=== PATIENT | female | born 1940 | race Caucasian/White ===

== ENCOUNTER → 2017-10-20 07:42 | Outpatient (REF) | payer SELFPAY ==
[2017-10-20 09:10] LABS: Add Manual Diff / Slide Review NO; Basophils Percent Auto 0.7 % (0-2); Eosinophils Percent Auto 1.4 % (2-4); Hematocrit 25.2 % (36-46); Hemoglobin 8.8 g/dL (12.0-16.0); Lymphocytes Percent Auto 36.7 % (25-40); Mean Corpuscular HGB Conc 34.8 % (30-36); Mean Corpuscular Hemoglobin 32.6 PG (26-34); Mean Corpuscular Volume 93.9 fL (80-100); Monocytes Percent Auto 15.3 % (3-14); Neutrophils Absolute Auto 2400 /uL (3000-5900); Neutrophils Percent Auto 45.9 % (50-75); Platelet Count 204 X10^3/uL (150-400); Red Blood Cell Count 2.68 X10^6/uL (4.0-5.2); Red Cell Distribution Width 17.2 % (11.6-14.8); White Blood Cell Count 5.3 X10^3/uL (4.5-11.0)
[2017-10-20 09:35] LABS: BUN Creatinine Ratio 18.9 (6-22); Calcium 9.7 mg/dL (8.4-10.2); Estimated Glomerular Filt Rate > 60.0 mL/min (>60); Glucose 82 mg/dL (80-110); HEMOLYSIS 20 (0-50); Potassium 4.2 mmol/L (3.4-5.1); Sodium 137 mmol/L (137-145)
== END ==
LOC: LAB 07:42
PROVIDERS: Visit Provider Internal Medicine
DX: N32.2 Vesical fistula, not elsewhere classified (principal)
CPT/HCPCS: 36415; 80048; 85025

== ENCOUNTER 2018-12-02 12:23 | Emergency (ER) | payer MEDICARE, OTHER, SELFPAY ==
[2018-12-02 12:39] VITALS: BP 155/67; PULSE 88; RESP 20; TEMP 37.1; O2SAT 98
--- NOTE | 2018-12-02 12:43 | DI.RAD.S_ITS ---
PROCEDURE: XR CHEST 1V INDICATIONS: chest pain TECHNIQUE: One view of the chest was acquired. COMPARISON: None. FINDINGS: Surgical changes and devices: There is a Port-A-Cath on the left with the tip in the superior vena cava. Lungs and pleura: Lungs are clear. No pleural effusions or pneumothorax. Mediastinum: Mediastinal contours appear normal. Heart size is normal. Bones and chest wall: No suspicious bony lesions. Overlying soft tissues appear unremarkable. IMPRESSION: No acute cardiac pulmonary disease. Dictated by: Gilmar Briseno M.D. on 12/02/2018 at 12:58 Approved by: Gilmar Briseno M.D. on 12/02/2018 at 12:59
[2018-12-02 13:11] LABS: Add Manual Diff / Slide Review NO; Basophils Absolute Auto 0 /uL (0-100); Basophils Percent Auto 0.6 % (0-2); Eosinophils Absolute Auto 100 /uL (0-450); Eosinophils Percent Auto 1.1 % (2-4); Hematocrit 27.8 % (36-46); Hemoglobin 9.5 g/dL (12.0-16.0); Lymphocytes Absolute Auto 2000 /uL (1100-4500); Mean Corpuscular HGB Conc 34.1 % (30-36); Mean Corpuscular Hemoglobin 33.4 PG (26-34); Mean Corpuscular Volume 97.9 fL (80-100); Monocytes Absolute Auto 900 /uL (0-900); Neutrophils Absolute Auto 3700 /uL (1500-7000); Neutrophils Percent Auto 55.3 % (50-75); Platelet Count 213 X10^3/uL (150-400); Red Blood Cell Count 2.84 X10^6/uL (4.0-5.2); Red Cell Distribution Width 13.6 % (11.6-14.8); White Blood Cell Count 6.8 X10^3/uL (4.5-11.0)
[2018-12-02 13:17] LABS: Prothrombin Time 11.7 SECONDS (10.1-12.7)
--- NOTE | 2018-12-02 13:19 | DI.CT.S_ITS ---
PROCEDURE: CT HEAD/BRAIN WO CON INDICATIONS: passing out with cancer TECHNIQUE: Noncontrast 4.5 mm thick angled axial sections acquired from the foramen magnum to the vertex, with coronal and sagittal reformats. For radiation dose reduction, the following was used: automated exposure control, adjustment of mA and/or kV according to patient size. COMPARISON: , CT, HEAD WITHOUT CONTRAST, 10/20/2015, 10:44. FINDINGS: Image quality: Excellent. CSF spaces: Basal cisterns are patent. No extra-axial fluid collections. The ventricles are symmetric in size and shape. Brain: No intracranial bleeds or masses. There is metal artifact from what appears to be an aneurysm coiling procedure at the middle cerebral artery course at the anterior border of the left temporal fossa. There is cerebral volume loss for age, with resultant ventricular and sulcal prominence. There are periventricular and deep white matter chronic small vessel ischemic changes. There is intracranial internal carotid artery atherosclerosis. Skull and face: Calvarium and visualized facial bones appear intact, without suspicious lesions. Sinuses: Visualized sinuses and mastoids are clear. IMPRESSION: Anterior left cranial fossa aneurysm coiling has been performed, and in this area no hemorrhage or mass effect is seen. Relatively prominent metal artifact from the coiling procedure is present, distal and clear visualization of portions of the skull base. No acute disease. Dictated by: Shaheen Singh M.D. on 12/02/2018 at 14:21 Approved by: Shaheen Singh M.D. on 12/02/2018 at 14:23
--- NOTE | 2018-12-02 13:19 | DI.CT.S_ITS ---
PROCEDURE: CT ANGIO CHEST PE PROTOCOL INDICATIONS: short of breath passing out ovarain cancer TECHNIQUE: After the administration of intravenous contrast, 2 mm thick sections acquired from the pulmonary apices to the posterior costophrenic angles. 3-dimensional maximum intensity projection (MIP) coronal and sagittal reformats were then acquired through the thorax. For radiation dose reduction, the following was used: automated exposure control, adjustment of mA and/or kV according to patient size. COMPARISON: None. FINDINGS: Image quality: Excellent. Pulmonary arteries: Pulmonary arteries are normal in size, and demonstrate no intraluminal filling defects to suggest central pulmonary embolism. Lungs and pleura: Lungs are clear. No pleural effusions or pneumothorax. Central and peripheral airways are patent. Mediastinum: Heart size is normal, without pericardial effusion. No mediastinal or hilar adenopathy. Thoracic aorta is normal in caliber and enhancement. Esophagus is normal in caliber, without hiatal hernia. There is a left-sided Port-A-Cath central line identified with the tip positioned at the intracaval junction. Coronary and aortic atherosclerosis is present. Bones and chest wall: No suspicious bony lesions. Ribs and thoracic spine appear intact throughout. Moderate degenerative changes of the spine are present. Thyroid gland is not enlarged or adequately evaluated. No axillary or supraclavicular adenopathy. Abdomen: There is a fat containing upper abdominal ventral hernia which is not completely included on this exam. Otherwise, the imaged upper abdominal solid organs appear normal in the early arterial phase of enhancement. IMPRESSION: 1. No evidence of pulmonary emboli. 2. No acute cardiovascular process is suspected. 3. Coronary and aortic atherosclerosis. 4. Fat containing midline superior ventral hernia. Dictated by: Aj Patrick M.D. on 12/02/2018 at 13:28 Approved by: Aj Patrick M.D. on 12/02/2018 at 13:31
--- NOTE | 2018-12-02 13:19 | CM.MNRNOTE ---
pt c/o intermittent chest pain for the past month, pt states she has episodes of rapid heart beating, and dizziness and has to sit herself down. pt denies syncople episodes. pt having sob when she walks a distance. pt told to come to ED for blood clot. pt has no symptoms at this time. pt also reports having 2 aneurysms, she gets checked yearly. pt states she last had her port accessed a year ago to get cancer checked.
[2018-12-02 13:20] LABS: PTT Partial Thromboplastin Tim 34 SECONDS (26.4-36.2)
--- NOTE | 2018-12-02 13:23 | PC.NURSE ---
Power port verified via pt's information card provided.
[2018-12-02] MEDS: SODIUM CHLORIDE 0.9% 1,000 ML 1000 ML IV (13:25)
[2018-12-02 13:26] LABS: Alanine Aminotransferase 26 IU/L (9-52); Albumin 4.4 g/dL (3.5-5.0); Albumin Globulin Ratio 1.3 (1.0-2.8); Alkaline Phosphatase 58 U/L (38-126); Aspartate Aminotransferase 23 IU/L (14-36); BUN Creatinine Ratio 16.3 (6-22); Bilirubin Total 0.4 mg/dL (0.2-1.3); Blood Urea Nitrogen 26 mg/dL (7-17); Calcium 9.6 mg/dL (8.4-10.2); Carbon Dioxide 17 mmol/L (22-32); Chloride 114 mmol/L (98-107); Creatine Kinase 96 U/L (30-135); Estimated Glomerular Filt Rate 31.2 mL/min (>60); Globulin 3.5 g/dL (1.7-4.1); Glucose 112 mg/dL (80-110); HEMOLYSIS < 15 (0-50); Lipase 208 U/L (23-300); Potassium 4.5 mmol/L (3.4-5.1); Sodium 141 mmol/L (137-145); Total Protein 7.9 g/dL (6.3-8.2)
[2018-12-02 13:37] LABS: Troponin I < 0.012 ng/mL (0.01-0.034)
--- NOTE | 2018-12-02 14:24 | ED_ITS ---
HPI - Chest Pain General Chief Complaint: Chest Pain Stated Complaint: thinks she has a blood clot Time Seen by Provider: 12/02/18 12:50 Source: patient Mode of arrival: ambulatory Limitations: no limitations History of Present Illness HPI narrative: Patient is a julian 77-year-old female with history of ovarian cancer and brain aneurysms presenting with a variety of complaints including lightheadedness, chest pain and syncopal episodes versus lightheadedness does not sound like she is truly passed out or lost consciousness. She apparently has been having some shortness of breath off and on for number of months. She feels lightheaded at times she has never really passed out. She had outpatient blood work done with her PCP yesterday which showed an elevated D-dimer and unsure what the number is. She came in thinking that she has a clot. She really does not have any chest pain now. She has no significant shortness of breath she can't really tell me if it is with exertion or at rest. She denies any fever or productive cough. No radiation of pain. She has no numbness tingling or focal deficits. MD complaint: chest pain Related Data Home Medications Medication Instructions Recorded Confirmed azilsartan medoxomil [Edarbi] 80 mg PO DAILY 12/02/18 12/02/18 megestrol 40 mg PO BID 12/02/18 12/02/18 Allergies Allergy/AdvReac Type Severity Reaction Status Date / Time No Known Drug Allergies Allergy Verified 12/02/18 13:25 Review of Systems Review of Systems ROS Unobtainable: All systems reviewed & are unremarkable except as noted in HPI and below Constitutional Denies chills, Denies fever(s), Denies lethargy and Denies weakness Eyes Denies change in vision, Denies eye discharge, Denies irritation and Denies loss of vision ENT Ears, Nose, Mouth, and Throat: Denies change in voice, Denies neck pain and Denies sore throat Cardiovascular Reports as per HPI and Reports dyspnea Respiratory Reports as per HPI and Reports dyspnea Gastrointestinal Gastrointestinal: Denies abdominal pain, Denies change in bowel habits, Denies diarrhea, Denies nausea and Denies vomiting Genitourinary Denies hematuria, Denies flank pain, Denies urinary incontinence and Denies urinary urgency Musculoskeletal Denies neck pain Integumentary/Breasts Denies pruritus, Denies erythema, Denies rash and Denies wounds Neurologic Denies loss of vision and Denies weakness [facility] Medical History Brain aneurysm (Acute) Ovarian cancer (Acute) Exam Initial Vital Signs Initial Vital Signs: Vital Signs Temperature 98.8 F 12/02/18 12:39 Pulse Rate 88 12/02/18 12:39 Respiratory Rate 20 12/02/18 12:39 Blood Pressure 155/67 H 12/02/18 12:39 Pulse Oximetry 98 12/02/18 12:39 GENERAL: Alert well-appearing elderly female HEENT: Head atraumatic,EOMI, pupils reactive, face symmetric, moist mucous membranes CARDIOVASCULAR: Regular rate and rhythm without murmurs, rubs or gallops. RESPIRATORY: Breath sounds equal bilaterally, no wheezes rales or rhonchi. Port placement in left chest ABDOMEN: Soft, nontender. Normoactive bowel sounds all 4 quadrants. No guarding or rebound. EXTREMITIES: Normal range of motion, no clubbing or edema. Neurovascularly intact NEUROLOGICAL: Alert and oriented x4.Normal gait and speech. Cranial nerves II through XII grossly intact. Good [id number], good [id number], strength equal bilaterally, no dysarthria or aphasia, sensation in tact to soft touch bilaterally, no visual changes, no facial droop SKIN: Warm, dry, no laceration, no petechiae, no rashes or lesions. Scores NIH Stroke Scale Level of Conciousness: Alert, keenly responsive Ask month/age: Answers both questions correctly. Open/close eyes, close hand: Performs both tasks correctly Best gaze horizontal: Normal Visual ding: No visual loss Facial palsy: Normal symetrical movement Left arm drift: No drift for full 10 sec Right arm drift: No drift for full 10 sec Left leg drift: No drift for full 10 sec Right leg drift: No drift for full 10 sec Limb ataxia: Absent Sensory on face/arms/legs: Normal, no sensory loss Best language: No aphasia, normal Dysarthria: Normal Extinction or inattention: No abnormality Total NIH Stroke scale score: 0 Course Orders Ordered: ED Orders 12/02/18 12:43 XR chest 1V Stat EKG-12 Lead Stat 12/02/18 13:00 Complete Blood Count AUTO DIFF Stat Comprehensive Metabolic Panel Stat Lipase Stat Partial Thromboplastin Time Stat Prothrombin Time INR Stat Troponin & CK Cardiac Panel Stat 12/02/18 13:19 CT angio chest PE protocol Stat CT head/brain wo con Stat Discontinued Medications Sodium Chloride (Normal Saline 0.9%) 1,000 mls @ 1,000 mls/hr IV BOLUS ONE Stop: 12/02/18 14:11 Last Infusion: 12/02/18 15:21 Dose: 1,000 mls/hr Admin: 12/02/18 13:25 Dose: 1,000 mls/hr Vital Signs - 8 hr 12/02/18 12:39 12/02/18 14:43 Temperature 98.8 F Pulse Rate 88 84 Respiratory Rate 20 Blood Pressure 155/67 H Blood Pressure [Right Arm] 134/56 L Pulse Oximetry 98 100 MDM - Chest Pain Lab Data Attestation: I reviewed the patient's lab results. Result diagrams: 12/02/18 13:00 12/02/18 13:00 Lab Results 12/02/18 12/02/18 12/02/18 Range/Units 13:00 13:00 13:00 WBC 6.8 (4.5-11.0) X10^3/uL RBC 2.84 L (4.0-5.2) X10^6/uL Hgb 9.5 L (12.0-16.0) g/dL Hct 27.8 L (36-46) % MCV 97.9 (80-100) fL MCH 33.4 (26-34) PG MCHC 34.1 (30-36) % RDW 13.6 (11.6-14.8) % Plt Count 213 (150-400) X10^3/uL Neut % (Auto) 55.3 (50-75) % Lymph % (Auto) 30.0 (25-40) % [place] % (Auto) 13.0 (3-14) % Eos % (Auto) 1.1 L (2-4) % Baso % (Auto) 0.6 (0-2) % Neut # (Auto) 3700 (9706-9085) /uL Lymph # (Auto) 2000 (2980-6382) /uL [place] # (Auto) 900 (0-900) /uL Eos # (Auto) 100 (0-450) /uL Baso # (Auto) 0 (0-100) /uL PT 11.7 (10.1-12.7) SECONDS INR 1.0 (0.9-1.3) APTT 34 (26.4-36.2) SECONDS Sodium 141 (137-145) mmol/L Potassium 4.5 (3.4-5.1) mmol/L Chloride 114 H (98-107) mmol/L Carbon Dioxide 17 L (22-32) mmol/L BUN 26 H (7-17) mg/dL Creatinine 1.60 H (0.52-1.04) mg/dL Estimated GFR 31.2 L (>60) mL/min BUN/Creatinine Ratio 16.3 (6-22) Glucose 112 H (80-110) mg/dL Calcium 9.6 (8.4-10.2) mg/dL Total Bilirubin 0.4 (0.2-1.3) mg/dL AST 23 (14-36) IU/L ALT 26 (9-52) IU/L Alkaline Phosphatase 58 (38-126) U/L Total Creatine Kinase 96 (30-135) U/L CK-MB (CK-2) TNP CK-MB (CK-2) Rel Index TNP Troponin I < 0.012 (0.01-0.034) ng/mL Total Protein 7.9 (6.3-8.2) g/dL Albumin 4.4 (3.5-5.0) g/dL Globulin 3.5 (1.7-4.1) g/dL Albumin/Globulin Ratio 1.3 (1.0-2.8) Lipase 208 (23-300) U/L Urine Dip Bedside Urine Glucose Negative Bedside Urine Bilirubin - Negative Bedside Urine Ketone - Negative Urine Specific [place] 1.015 Bedside Urine Occult Blood - Negative Bedside Urine pH 5.5 Bedside Urine Protein - Negative Bedside Urine Urobilinogen - Negative Bedside Urine Nitrite - Negative Bedside Urine Leukocytes - Negative Esterase Imaging Data Chest x-ray: Radiologist's impression: PROCEDURE: XR CHEST 1V INDICATIONS: chest pain TECHNIQUE: One view of the chest was acquired. COMPARISON: None. FINDINGS: Surgical changes and devices: There is a Port-A-Cath on the left with the tip in the superior vena cava. Lungs and pleura: Lungs are clear. No pleural effusions or pneumothorax. Mediastinum: Mediastinal contours appear normal. Heart size is normal. Bones and chest wall: No suspicious bony lesions. Overlying soft tissues appear unremarkable. IMPRESSION: No acute cardiac pulmonary disease. Dictated by: Gilmar Briseno M.D. on 12/02/2018 at 12:58 CT scan - chest: Radiologist's impression: PROCEDURE: CT ANGIO CHEST PE PROTOCOL INDICATIONS: short of breath passing out ovarain cancer TECHNIQUE: After the administration of intravenous contrast, 2 mm thick sections acquired from the pulmonary apices to the posterior costophrenic angles. 3-dimensional maximum intensity projection (MIP) coronal and sagittal reformats were then acquired through the thorax. For radiation dose reduction, the following was used: automated exposure cont rol, adjustment of mA and/or kV according to patient size. COMPARISON: None. FINDINGS: Image quality: Excellent. Pulmonary arteries: Pulmonary arteries are normal in size, and demonstrate no intraluminal filling defects to suggest central pulmonary embolism. Lungs and pleura: Lungs are clear. No pleural effusions or pneumothorax. Central and peripheral airways are patent. Mediastinum: Heart size is normal, without pericardial effusion. No mediastinal or hilar adenopathy. Thoracic aorta is normal in caliber and enhancement. Esophagus is normal in caliber, without hiatal hernia. There is a left-sided Port-A-Cath central line identified with the tip positioned at the intracaval junction. Coronary and aortic atherosclerosis is present. Bones and chest wall: No suspicious bony lesions. Ribs and thoracic spine appear intact throughout. Moderate degenerative changes of the spine are present. Thyroid gland is not enlarged or adequately evaluated. No axillary or supraclavicular adenopathy. Abdomen: There is a fat containing upper abdominal ventral hernia which is not completely included on this exam. Otherwise, the imaged upper abdominal solid organs appear normal in the early arterial phase of enhancement. IMPRESSION: 1. No evidence of pulmonary emboli. 2. No acute cardiovascular process is suspected. 3. Coronary and aortic atherosclerosis. 4. Fat containing midline superior ventral hernia. Dictated by: Aj Patrick M.D. on 12/02/2018 at 13:28 CT scan - head: Radiologist's impression: PROCEDURE: CT HEAD/BRAIN WO CON INDICATIONS: passing out with cancer TECHNIQUE: Noncontrast 4.5 mm thick angled axial sections acquired from the foramen magnum to the vertex, with coronal and sagittal reformats. For radiation dose reduction, the following was used: automated exposure control, adjustment of mA and/or kV according to patient size. COMPARISON: [facility], CT, HEAD WITHOUT CONTRAST, 10/20/2015, 10:44. FINDINGS: Image quality: Excellent. CSF spaces: Basal cisterns are patent. No extra-axial fluid collections. The ventricles are symmetric in size and shape. Brain: No intracranial bleeds or masses. There is metal artifact from what appears to be an aneurysm coiling procedure at the middle cerebral artery course at the anterior border of the left temporal fossa. There is cerebral volume loss for age, with resultant ventricular and sulcal prominence. There are periventricular and deep white matter chronic small vessel ischemic changes. There is intracranial internal carotid artery atherosclerosis. Skull and face: Calvarium and visualized facial bones appear intact, without suspicious lesions. Sinuses: Visualized sinuses and mastoids are clear. IMPRESSION: Anterior left cranial fossa aneurysm coiling has been performed, and in this area no hemorrhage or mass effect is seen. Relatively prominent metal artifact from the coiling procedure is present, distal and clear visualization of portions of the skull base. No acute disease. Dictated by: Shaheen Singh M.D. on 12/02/2018 at 14:21 ECG Data Attestation: I personally reviewed and interpreted this ECG as follows: Prior ECG tracings: available for review Interpretation: Sinus rhythm rate 90 Q-wave noted in lead [address] elevations artifact noted mild ST chin in lead [address] elevations similar previous EKG MDM Narrative Medical decision making narrative: No real cause of patient's symptoms are identified. No pulmonary embolism identified head CT seems stable at this time. She is not requiring oxygen no sign of infection. EKG troponin also reassuring. At this time patient feels ready and able to go home. Discharge Plan Departure Patient Disposition: Home Clinical Impression: Atypical chest pain Discharge Date/Time: 12/02/18 15:23 Interventions: ED Discharge Assessment Last Done: 12/02/18 15:23 Instructions: DI for Atypical Chest Pain Activity Restrictions/Additional Instructions: *You have been diagnosed with atypical chest pain *What to do: At this time CT scan of head and chest are reassuring. No sign of blood clot. Blood work also reassuring. *Continue to take medications as directed *Follow up with your primary care provider in 2-3 days *Return to ER if you should have any new or worsening shortness of breath or chest or any new, worsening or concerning symptoms Prescriptions: No Action megestrol 40 mg tablet 40 mg PO BID RF: 0 Edarbi 80 mg tablet 80 mg PO DAILY RF: 0 Referrals: Zacarias Mcfarland MD [Non-Staff] -
[2018-12-02 14:43] VITALS: BP 134/56; PULSE 84; O2SAT 100
== END 2018-12-02 15:23 | disposition home or self-care (01) ==
PROVIDERS: Emergency Provider Emergency Medicine
DX: R07.89 Other chest pain (principal); R55 Syncope and collapse; R06.02 Shortness of breath; C56.9 Malignant neoplasm of unspecified ovary; Z87.898 Personal history of other specified conditions
CPT/HCPCS: 36591; 70450; 71045; 71275; 80053; 81003; 82550; 83690; 84484; 85025; 85610; 85730; 93005; 96360; 96361; 99283; 99285; Q9967

== ENCOUNTER 2020-09-16 10:59 | Emergency (ER) | payer MEDICARE, OTHER, SELFPAY ==
[2020-09-16] VITALS (26 sets, daily range): BP systolic 114–151; BP diastolic 56–76; PULSE 74–113; RESP 12–24; TEMP 35.6–37.3; O2SAT 95–100
--- NOTE | 2020-09-16 11:15 | ED.GIBLEED ---
HPI - GI Bleed General Chief complaint: GI Bleed Stated complaint: Black stool, vomiting black Time Seen by Provider: 09/16/20 11:15 Source: patient, family and old records reviewed Mode of arrival: Family Vehicle Limitations: no limitations History of Present Illness HPI Narrative: This is a pleasant 79-year-old female comes emergency department with a near syncopal episode this, 4 episodes of black emesis as well as black stool in her colostomy bag. Patient states she has noted melena in her colostomy intermittently over time but most recently over the last several days. She denies headache. She denies fevers or chills. She denies diaphoresis. She denies any chest pain or shortness of breath. She denies any back or abdominal pain. She does currently feel nauseated. She denies any new urinary symptoms. Her notes that she became more pale in the last 24 hours. Patient does not appreciated as much. She is on Brilinta daily as well as aspirin 81 mg. She has a cardiac history with cardiac stents, she takes medication for hypertension, dyslipidemia, torsemide as well as her medication [facility]in[facility] for her ovarian cancer. Patient states she was treated in the past with radiation and medication for her ovarian cancer. She did develop recurrence and is now currently only on medication with no radiation this episode. Her oncologist is [facility]. Patient states she does not any prior surgeries besides her resection and colostomy and cardiac stents. She denies any allergies to medications. She does not have any known history of GI bleeds. Her cardiology team is based out of [place]. Her primary care physician is on [facility]. Related Data Home Medications Medication Instructions Recorded Confirmed azilsartan medoxomil [Edarbi] 80 mg PO DAILY 12/02/18 12/02/18 megestrol 40 mg PO BID 12/02/18 12/02/18 Coreg 09/16/20 Crestor 09/16/20 Demadex 09/16/20 Megace 09/16/20 Nitrostat 09/16/20 aspirin 09/16/20 ergocalciferol (vitamin D2) 09/16/20 Allergies Allergy/AdvReac Type Severity Reaction Status Date / Time No Known Drug Allergies Allergy Verified 09/16/20 11:13 Review of Systems Review of Systems ROS Unobtainable: All systems reviewed & are unremarkable except as noted in HPI and below Patient History Medical History (Updated 09/16/20 @ 15:36 by Nicolette Blackburn DO) Brain aneurysm Ovarian cancer alcohol intake frequency: 0-2 drinks per day Substance Use Type: does not use Exam Narrative Exam Narrative: GEN: well nourished, pale female, alert and oriented x 3, patient appears to be in mild distress. No diaphoresis. HEENT: Atraumatic, pupils are equal round reactive to light, extraocular movements are intact, there is conjunctival pallor. Throat is clear without any exudates, erythema, tonsillar enlargement or uvular deviation HEART: Regular rate and rhythm without murmur, clicks, rubs. LUNGS:Lungs clear to auscultation, no wheezes, rales, crackles, chest moves symmetrically, no tachypnea accessory muscle use. ABD:bowel sounds normal, soft, non-tender, no guarding, rebound, rigidity, no masses noted, no hepatosplenomegaly. Patient has melanotic stool which is Hemoccult positive from her colostomy. No bright red blood is noted. :No CVA tenderness MSCL: Non-tender, no muscle atrophy, normal range of motion. NEURO:CN 2-12 intact, sensation normal SKIN: Positive for pallor, no petechiae, ecchymosis or other skin changes noted. 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) Stat 09/16/20 11:35 Complete Blood Count AUTO DIFF Stat Comprehensive Metabolic Panel Stat Lactate (Lactic Acid) Stat Lipase Stat Packed Cells Stat Partial Thromboplastin Time Stat Prothrombin Time INR Stat Troponin I Stat Type and Screen Stat 09/16/20 12:06 Blood Culture Stat 09/16/20 12:45 Urine Culture Stat Urine Microscopic Stat Discontinued Medications Sodium Chloride (Normal Saline 0.9%) 1,000 mls @ 1,000 mls/hr IV BOLUS ONE Stop: 09/16/20 12:14 Last Infusion: 09/16/20 13:57 Dose: 0 mls/hr Documented by: Admin: 09/16/20 11:50 Dose: 1,000 mls/hr Documented by: NHAN Pantoprazole Sodium 80 mg/ (Sodium Chloride) 100 mls @ 10 mls/hr IV CONT SOHAIL Last Infusion: 09/16/20 16:54 Dose: 8 mg/hr, 10 mls/hr Documented by: Admin: 09/16/20 11:50 Dose: 8 mg/hr, 10 mls/hr Documented by: NHAN Ondansetron HCl (Ondansetron 4 Mg/2 Ml Inj) 4 mg IV NOW ONE Stop: 09/16/20 11:16 Last Admin: 09/16/20 11:50 Dose: 4 mg Documented by: NHAN Pantoprazole Sodium (Pantoprazole 40 Mg Vial) 80 mg IV NOW ONE Stop: 09/16/20 11:17 Last Admin: 09/16/20 11:50 Dose: 80 mg Documented by: NHAN Consultations Consultation #1: Spoke with GI from [facility]. They will see patient after transfer. Consultation #2: Dr. Santos accepts for transfer as the hospitalist at [facility]. Patient has been stable here in the department. She did receive 2 units plan she is on Protonix. Reviewed patient's history, findings labs today. Vital Signs Vital signs: Vital Signs - 8 hr 09/16/20 11:31 09/16/20 11:33 09/16/20 12:00 Temperature Pulse Rate 87 89 90 Respiratory Rate 19 19 19 Blood Pressure 129/62 135/60 Pulse Oximetry 99 99 99 09/16/20 12:36 09/16/20 12:47 09/16/20 13:00 Temperature Pulse Rate 83 83 84 Respiratory Rate 18 16 17 Blood Pressure 116/76 116/76 Pulse Oximetry 98 99 99 09/16/20 13:30 09/16/20 14:00 09/16/20 14:01 Temperature 98.8 F Pulse Rate 75 77 76 Respiratory Rate 14 15 18 Blood Pressure 116/76 Pulse Oximetry 100 99 09/16/20 14:05 09/16/20 14:15 09/16/20 14:17 Temperature 97.6 F Pulse Rate 77 78 79 Respiratory Rate 16 19 16 Blood Pressure 122/63 124/62 124/62 Pulse Oximetry 99 97 09/16/20 14:30 09/16/20 14:45 09/16/20 15:00 Temperature Pulse Rate 76 76 75 Respiratory Rate 17 21 15 Blood Pressure 119/59 L 130/65 125/60 Pulse Oximetry 99 100 100 09/16/20 15:15 09/16/20 15:30 09/16/20 15:31 Temperature 98.4 F 98.4 F Pulse Rate 75 77 75 Respiratory Rate 16 17 16 Blood Pressure 124/58 L 114/59 L 114/59 L Pulse Oximetry 100 100 09/16/20 15:45 09/16/20 15:46 09/16/20 15:47 Temperature 98.5 F 99.2 F Pulse Rate 88 81 81 Respiratory Rate 21 16 18 Blood Pressure 136/60 136/60 131/60 Pulse Oximetry 99 09/16/20 16:00 09/16/20 16:16 09/16/20 16:30 Temperature Pulse Rate 77 76 77 Respiratory Rate 24 19 17 Blood Pressure 128/60 151/56 H 125/74 Pulse Oximetry 100 95 100 09/16/20 16:46 Temperature Pulse Rate 80 Respiratory Rate 16 Blood Pressure 131/60 Pulse Oximetry 100 MDM - GI Bleed Lab Data Attestation: I reviewed the patient's lab results. Result diagrams: 09/16/20 11:35 09/16/20 11:35 Labs: Lab Results 09/16/20 09/16/20 09/16/20 Range/Units 11:30 11:35 11:35 WBC 7.8 (4.5-11.0) X10^3/uL RBC 2.07 L (4.0-5.2) X10^6/uL Hgb 6.8 L* (12.0-16.0) g/dL Hct 20.6 L* (36-46) % MCV 99.2 (80-100) fL MCH 33.0 (26-34) PG MCHC 33.3 (30-36) % RDW 15.2 H (11.6-14.8) % Plt Count 166 (150-400) X10^3/uL Neut % (Auto) 67.9 (50-75) % Lymph % (Auto) 24.8 L (25-40) % [place] % (Auto) 6.5 (3-14) % Eos % (Auto) 0.4 L (2-4) % Baso % (Auto) 0.4 (0-2) % Neut # (Auto) 5300 (2527-0653) /uL Lymph # (Auto) 1900 (8750-0767) /uL [place] # (Auto) 500 (0-900) /uL Eos # (Auto) 0 (0-450) /uL Baso # (Auto) 0 (0-100) /uL PT 12.7 (10.1-12.7) SECONDS INR 1.1 (0.9-1.3) APTT 24 L D (26.4-36.2) SECONDS Sodium (137-145) mmol/L Potassium (3.4-5.1) mmol/L Chloride (98-107) mmol/L Carbon Dioxide (22-32) mmol/L BUN (7-17) mg/dL Creatinine (0.52-1.04) mg/dL Estimated GFR (>60) mL/min BUN/Creatinine Ratio (6-22) Glucose (80-110) mg/dL Lactate (0.7-2.1) mmol/L Calcium (8.4-10.2) mg/dL Total Bilirubin (0.2-1.3) mg/dL AST (14-36) IU/L ALT (<35) IU/L Alkaline Phosphatase (38-126) U/L Troponin I (0.01-0.034) ng/mL Total Protein (6.3-8.2) g/dL Albumin (3.5-5.0) g/dL Globulin (1.7-4.1) g/dL Albumin/Globulin Ratio (1.0-2.8) Lipase (23-300) U/L Urine RBC (0-5/HPF) Urine WBC (0-5/HPF) Ur Squamous Epith Cells (0-5/HPF) Urine Bacteria (None) Ur Culture Indicated? SARS-CoV-2 (PCR) Negative (Negative) Blood Type Antibody Screen Crossmatch 0409/16/20 09/16/20 Range/Units 11:35 11:35 11:35 WBC (4.5-11.0) X10^3/uL RBC (4.0-5.2) X10^6/uL Hgb (12.0-16.0) g/dL Hct (36-46) % MCV (80-100) fL MCH (26-34) PG MCHC (30-36) % RDW (11.6-14.8) % Plt Count (150-400) X10^3/uL Neut % (Auto) (50-75) % Lymph % (Auto) (25-40) % [place] % (Auto) (3-14) % Eos % (Auto) (2-4) % Baso % (Auto) (0-2) % Neut # (Auto) (9770-8148) /uL Lymph # (Auto) (3811-4877) /uL [place] # (Auto) (0-900) /uL Eos # (Auto) (0-450) /uL Baso # (Auto) (0-100) /uL PT (10.1-12.7) SECONDS INR (0.9-1.3) APTT (26.4-36.2) SECONDS Sodium 137 (137-145) mmol/L Potassium 3.5 (3.4-5.1) mmol/L Chloride 104 (98-107) mmol/L Carbon Dioxide 20 L (22-32) mmol/L BUN 69 H (7-17) mg/dL Creatinine 1.34 H (0.52-1.04) mg/dL Estimated GFR 38.1 L (>60) mL/min BUN/Creatinine Ratio 51.5 H (6-22) Glucose 174 H (80-110) mg/dL Lactate 4.2 H* (0.7-2.1) mmol/L Calcium 9.1 (8.4-10.2) mg/dL Total Bilirubin 0.4 (0.2-1.3) mg/dL AST 33 (14-36) IU/L ALT 22 (<35) IU/L Alkaline Phosphatase 52 (38-126) U/L Troponin I < 0.012 (0.01-0.034) ng/mL Total Protein 6.6 (6.3-8.2) g/dL Albumin 3.7 (3.5-5.0) g/dL Globulin 2.9 (1.7-4.1) g/dL Albumin/Globulin Ratio 1.3 (1.0-2.8) Lipase 159 (23-300) U/L Urine RBC (0-5/HPF) Urine WBC (0-5/HPF) Ur Squamous Epith Cells (0-5/HPF) Urine Bacteria (None) Ur Culture Indicated? SARS-CoV-2 (PCR) (Negative) Blood Type A Positive Antibody Screen Negative Crossmatch See Detail 09/16/20 09/16/20 Range/Units 12:45 14:15 WBC (4.5-11.0) X10^3/uL RBC (4.0-5.2) X10^6/uL Hgb (12.0-16.0) g/dL Hct (36-46) % MCV (80-100) fL MCH (26-34) PG MCHC (30-36) % RDW (11.6-14.8) % Plt Count (150-400) X10^3/uL Neut % (Auto) (50-75) % Lymph % (Auto) (25-40) % [place] % (Auto) (3-14) % Eos % (Auto) (2-4) % Baso % (Auto) (0-2) % Neut # (Auto) (0345-1155) /uL Lymph # (Auto) (1858-5505) /uL [place] # (Auto) (0-900) /uL Eos # (Auto) (0-450) /uL Baso # (Auto) (0-100) /uL PT (10.1-12.7) SECONDS INR (0.9-1.3) APTT (26.4-36.2) SECONDS Sodium (137-145) mmol/L Potassium (3.4-5.1) mmol/L Chloride (98-107) mmol/L Carbon Dioxide (22-32) mmol/L BUN (7-17) mg/dL Creatinine (0.52-1.04) mg/dL Estimated GFR (>60) mL/min BUN/Creatinine Ratio (6-22) Glucose (80-110) mg/dL Lactate 1.3 (0.7-2.1) mmol/L Calcium (8.4-10.2) mg/dL Total Bilirubin (0.2-1.3) mg/dL AST (14-36) IU/L ALT (<35) IU/L Alkaline Phosphatase (38-126) U/L Troponin I (0.01-0.034) ng/mL Total Protein (6.3-8.2) g/dL Albumin (3.5-5.0) g/dL Globulin (1.7-4.1) g/dL Albumin/Globulin Ratio (1.0-2.8) Lipase (23-300) U/L Urine RBC None seen (0-5/HPF) Urine WBC 5-10/hpf H (0-5/HPF) Ur Squamous Epith Cells 0-1 /hpf (0-5/HPF) Urine Bacteria None seen (None) Ur Culture Indicated? Specimen cultured SARS-CoV-2 (PCR) (Negative) Blood Type Antibody Screen Crossmatch Point of Care Testing Stool Occult Blood Positive Urine Dip Bedside Urine Glucose Negative Bedside Urine Bilirubin - Negative Bedside Urine Ketone - Negative Urine Specific [place] 1.015 Bedside Urine Occult Blood - Negative Bedside Urine pH 6.0 Bedside Urine Protein +/- 15 Bedside Urine Urobilinogen - Negative Bedside Urine Nitrite - Negative Bedside Urine Leukocytes + [address] scan - abdomen/pelvis: Radiologist's Impression: [address] [id number] Scan ReportSigned Patient: Svetlana AbarcaMR#: [id number]: [id number]:[id number]/Sex: 79 / FDate of Service: 09/16/20Loc: EDAccession Number: [id number] Procedure: CT abdomen pelvis w con Ordering Provider: Nicolette Blackburn D.O. PROCEDURE: CT ABDOMEN PELVIS W CON INDICATIONS: black emesis/stool, gi bleed, + ovarian cancer, colostomy TECHNIQUE: After the administration of intravenous contrast, 5 mm thick sections acquired from the diaphragm to the symphysis. 5 mm coronal and sagittal reformats were acquired. For radiation dose reduction, the following was used: automated exposure control, adjustment of mA and/or kV according to patient size. COMPARISON: [facility], CT, CT ANGIO CHEST PE PROTOCOL, 12/02/2018, 13:58. FINDINGS: Image quality: Excellent. ABDOMEN: Lung bases: Mild basilar atelectasis. Heart size is normal. No pericardial effusions. Multi-vessel coronary vascular calcification. Solid organs: Liver is normal in size and enhancement. Gallbladder demonstrates radiopaque gallstones. Biliary system is non dilated. Pancreas enhances normally. Spleen is normal in size and enhancement. No adrenal nodules. Kidneys demonstrate normal size and enhancement, without hydronephrosis. There is circumferential wall thickening along the distal left pelvis/proximal ureter. Peritoneum and bowel: Patient is status post left hemicolectomy with diverting ostomy within the left abdomen. There are diverticula noted within the ostomy with a peristomal hernia containing fat, partially calcified soft tissue deposits. There is mild adjacent inflammation. The stomach and proximal small bowel are nonobstructed. There is a large ventral hernia encompassing the majority of the anterior abdominal wall including fat and loops of small and large bowel. There is mild wall thickening of the right colon with mild adjacent inflammation. Multiple mesenteric masses most of which are partially calcified. Within the left lateral pararenal space there is a 3.2 by 2.1 by 2.4 centimeter mass. Adjacent smaller masses identified. Multiple mesenteric and portal caval lymph nodes are also identified most which are partially calcified. Within the pelvis just posterior to the bladder is a multilobulated soft tissue mass with heterogeneous calcifications measuring 4.9 x 5.2 x 5.9 centimeters. Nodes and vessels: Multiple lymph nodes as described above most of which are partially calcified. Mild dilation of the infrarenal abdominal aorta measuring up to 2.5 centimeters. Miscellaneous: Ventral hernia as above. PELVIS: Genitourinary: Status post hysterectomy and oophorectomy. Findings as above. Miscellaneous: Soft tissue deposits noted along the anterior abdominal wall some of which are partially calcified and subcentimeter in short axis diameter. Bones: No suspicious bony lesions. Posterior fusion of L4-L5 without evidence of hardware complication. No acute osseous abnormality or aggressive appearing osseous lesion. No vertebral body compression fractures. IMPRESSION: Multiple mesenteric and soft tissue deposits most of which are partially calcified most consistent with metastatic disease likely ovarian given history. Patient is status post left hemicolectomy with diverting ostomy. Within the ostomy there is a peristomal hernia including fat and bowel. Adjacent to this are multiple diverticula and small amount of inflammation which may suggest diverticulitis versus cycle of ostomy complication. In addition there are likely metastatic deposits. Mild wall thickening of the right colon which may be seen in the setting of colitis. Focal dilation of the infrarenal abdominal aorta measuring up to 2.5 centimeters. Findings discussed with the ordering provider Dr. Nicolette bill combine Dr. Shelton Pretty at approximately 1200 hours [place] Standard time on 09/16/2020. Dictated by: on 09/16/2020 at 11:53 Approved by: on 09/16/2020 at 12:19 ECG Data Attestation: I personally reviewed and interpreted this ECG as follows: Interpretation: Rhythm with premature supraventricular complexes. Left axis deviation. Low voltage QRS. No acute ST changes. MDM Narrative Medical decision making narrative: This is a year old female comes emergency department with complaint of near syncope with likely GI bleed with melena and positive stool occult on her colostomy and reported hematemesis of blackish emesis. Patient's hemoglobin has dropped from her prior a year ago it is 6.8 today. Patient was transfused 2 units. Protonix 80 mg and drip was started. Patient has been hemodynamically stable except for some tachycardia initially which has improved after transfusion. Her initial lactate was 4.2 but improved to a normal range. Troponin was negative. BUN is elevated consistent with GI bleed. She is a daily anticoagulant. She has known ovarian cancer and follows with oncology at [facility]. Her CT does not have any abdominal imaging for comparison but she has multiple calcific changes likely secondary to her ovarian cancer with some possible colitis but this would not explain her black emesis. She does not have any obstructive changes. Patient transferred as they have multiple subspecialties available that we do not have. I did speak with gastroenterology as well as the hospitalist. Discharge Plan Departure Patient Disposition: [facility] Clinical Impression: Acute GI bleeding, Ovarian cancer Prescriptions: No Action aspirin 81 mg Tablet,Chewable RF: 0 Coreg 12.5 mg RF: 0 Megace 40 mg RF: 0 Crestor 40 mg RF: 0 Nitrostat 0.4 mg RF: 0 ergocalciferol (vitamin D2) 2,000 Units RF: 0 Demadex 10 mg RF: 0 megestrol 40 mg tablet 40 mg PO BID RF: 0 Edarbi 80 mg tablet 80 mg PO DAILY RF: 0 Referrals: Elena Huerta MD [Primary Care Provider] -
--- NOTE | 2020-09-16 11:26 | DI.CT.S_ITS ---
PROCEDURE: CT ABDOMEN PELVIS W CON INDICATIONS: black emesis/stool, gi bleed, + ovarian cancer, colostomy TECHNIQUE: After the administration of intravenous contrast, 5 mm thick sections acquired from the diaphragm to the symphysis. 5 mm coronal and sagittal reformats were acquired. For radiation dose reduction, the following was used: automated exposure control, adjustment of mA and/or kV according to patient size. COMPARISON: [facility], CT, CT ANGIO CHEST PE PROTOCOL, 12/02/2018, 13:58. FINDINGS: Image quality: Excellent. ABDOMEN: Lung bases: Mild basilar atelectasis. Heart size is normal. No pericardial effusions. Multi-vessel coronary vascular calcification. Solid organs: Liver is normal in size and enhancement. Gallbladder demonstrates radiopaque gallstones. Biliary system is non dilated. Pancreas enhances normally. Spleen is normal in size and enhancement. No adrenal nodules. Kidneys demonstrate normal size and enhancement, without hydronephrosis. There is circumferential wall thickening along the distal left pelvis/proximal ureter. Peritoneum and bowel: Patient is status post left hemicolectomy with diverting ostomy within the left abdomen. There are diverticula noted within the ostomy with a peristomal hernia containing fat, partially calcified soft tissue deposits. There is mild adjacent inflammation. The stomach and proximal small bowel are nonobstructed. There is a large ventral hernia encompassing the majority of the anterior abdominal wall including fat and loops of small and large bowel. There is mild wall thickening of the right colon with mild adjacent inflammation. Multiple mesenteric masses most of which are partially calcified. Within the left lateral pararenal space there is a 3.2 by 2.1 by 2.4 centimeter mass. Adjacent smaller masses identified. Multiple mesenteric and portal caval lymph nodes are also identified most which are partially calcified. Within the pelvis just posterior to the bladder is a multilobulated soft tissue mass with heterogeneous calcifications measuring 4.9 x 5.2 x 5.9 centimeters. Nodes and vessels: Multiple lymph nodes as described above most of which are partially calcified. Mild dilation of the infrarenal abdominal aorta measuring up to 2.5 centimeters. Miscellaneous: Ventral hernia as above. PELVIS: Genitourinary: Status post hysterectomy and oophorectomy. Findings as above. Miscellaneous: Soft tissue deposits noted along the anterior abdominal wall some of which are partially calcified and subcentimeter in short axis diameter. Bones: No suspicious bony lesions. Posterior fusion of L4-L5 without evidence of hardware complication. No acute osseous abnormality or aggressive appearing osseous lesion. No vertebral body compression fractures. IMPRESSION: Multiple mesenteric and soft tissue deposits most of which are partially calcified most consistent with metastatic disease likely ovarian given history. Patient is status post left hemicolectomy with diverting ostomy. Within the ostomy there is a peristomal hernia including fat and bowel. Adjacent to this are multiple diverticula and small amount of inflammation which may suggest diverticulitis versus cycle of ostomy complication. In addition there are likely metastatic deposits. Mild wall thickening of the right colon which may be seen in the setting of colitis. Focal dilation of the infrarenal abdominal aorta measuring up to 2.5 centimeters. Findings discussed with the ordering provider Dr. Nicolette bill combine Dr. Shelton Pretty at approximately 1200 hours [place] Standard time on 09/16/2020. Dictated by: on 09/16/2020 at 11:53 Approved by: on 09/16/2020 at 12:19
--- NOTE | 2020-09-16 11:44 | PC.NURSE ---
Ostomy bag emptied and guiac postive, black liquid.
[2020-09-16 11:48] LABS: Add Manual Diff / Slide Review NO; Basophils Absolute Auto 0 /uL (0-100); Basophils Percent Auto 0.4 % (0-2); Eosinophils Absolute Auto 0 /uL (0-450); Eosinophils Percent Auto 0.4 % (2-4); Lymphocytes Absolute Auto 1900 /uL (1100-4500); Lymphocytes Percent Auto 24.8 % (25-40); Mean Corpuscular HGB Conc 33.3 % (30-36); Mean Corpuscular Volume 99.2 fL (80-100); Monocytes Absolute Auto 500 /uL (0-900); Monocytes Percent Auto 6.5 % (3-14); Neutrophils Absolute Auto 5300 /uL (1500-7000); Neutrophils Percent Auto 67.9 % (50-75); Platelet Count 166 X10^3/uL (150-400); Red Blood Cell Count 2.07 X10^6/uL (4.0-5.2); Red Cell Distribution Width 15.2 % (11.6-14.8); White Blood Cell Count 7.8 X10^3/uL (4.5-11.0)
[2020-09-16] MEDS: PANTOPRAZOLE 80 MG in SODIUM CHLORIDE 0.9% 100 ML 10 ML IV (11:50)
[2020-09-16] MEDS: ONDANSETRON 4 MG/2 ML INJ IV (11:50)
[2020-09-16] MEDS: SODIUM CHLORIDE 0.9% 1,000 ML 1000 ML IV (11:50)
[2020-09-16] MEDS: PANTOPRAZOLE 40 MG VIAL 80 MG IV (11:50)
[2020-09-16 11:56] LABS: Hematocrit 20.6 % (36-46)
[2020-09-16 11:57] LABS: Hemoglobin 6.8 g/dL (12.0-16.0)
[2020-09-16 12:06] LABS: Alanine Aminotransferase 22 IU/L (<35); Albumin 3.7 g/dL (3.5-5.0); Albumin Globulin Ratio 1.3 (1.0-2.8); Alkaline Phosphatase 52 U/L (38-126); Aspartate Aminotransferase 33 IU/L (14-36); BUN Creatinine Ratio 51.5 (6-22); Bilirubin Total 0.4 mg/dL (0.2-1.3); Blood Urea Nitrogen 69 mg/dL (7-17); Calcium 9.1 mg/dL (8.4-10.2); Carbon Dioxide 20 mmol/L (22-32); Chloride 104 mmol/L (98-107); Estimated Glomerular Filt Rate 38.1 mL/min (>60); Globulin 2.9 g/dL (1.7-4.1); Glucose 174 mg/dL (80-110); HEMOLYSIS < 15 (0-50); Lipase 159 U/L (23-300); Potassium 3.5 mmol/L (3.4-5.1); Sodium 137 mmol/L (137-145); Total Protein 6.6 g/dL (6.3-8.2)
[2020-09-16 12:11] LABS: Lactate (Lactic Acid) 4.2 mmol/L (0.7-2.1)
[2020-09-16 12:18] LABS: Troponin I < 0.012 ng/mL (0.01-0.034)
[2020-09-16 12:26] LABS: INR 1.1 (0.9-1.3); Prothrombin Time 12.7 SECONDS (10.1-12.7)
[2020-09-16 12:29] LABS: PTT Partial Thromboplastin Tim 24 SECONDS (26.4-36.2)
[2020-09-16 13:29] LABS: Bacteria Urine None Seen; RBC Urine None Seen (0-5/HPF)
[2020-09-16 13:38] LABS: Culture Indicated Urine Specimen Cultured; Squamous Epithelial Cell Urine 0-1 /HPF (0-5/HPF); WBC Urine 5-10/HPF (0-5/HPF)
[2020-09-16 13:39] LABS: Reflexed Lactate in 2 Hours Y
[2020-09-16 13:46] LABS: COVID19 - ADMIT (NP swab/PCR) Negative (Negative)
--- NOTE | 2020-09-16 14:04 | PC.NURSE ---
Blood administration delayed d/t blood availability from lab.
[2020-09-16 14:38] LABS: Lactate 2HR (Lactic Acid Rflx) 1.3 mmol/L (0.7-2.1)
--- NOTE | 2020-09-16 16:55 | PC.NURSE ---
crystal completed just prior to departure. Pt tolerated well.
== END 2020-09-16 16:57 | disposition short-term general hospital (02) ==
PROVIDERS: Emergency Provider Emergency Medicine; PCP Obstetrics & Gynecology Gynecologic Oncology
DX: K92.2 Gastrointestinal hemorrhage, unspecified (principal); C56.9 Malignant neoplasm of unspecified ovary; R11.0 Nausea; R94.31 Abnormal electrocardiogram [ECG] [EKG]; Z20.822 Contact with and (suspected) exposure to COVID-19; Z86.79 Personal history of other diseases of the circulatory system
CPT/HCPCS: 36415; 36430; 74177; 80053; 81003; 81015; 82272; 83605; 83690; 84484; 85025; 85610; 85730; 86850; 86900; 86901; 87040; 87077; 87086; 87147; 87635; 93005; 93010; 96365; 96366; 96375; 99285; C9803; P9016; C9113; J2405; Q9967

== ENCOUNTER 2021-02-24 17:31 | Emergency (ER) | payer MEDICARE, OTHER, SELFPAY ==
[2021-02-24] VITALS (34 sets, daily range): BP systolic 96–146; BP diastolic 51–75; PULSE 71–98; RESP 16–28; TEMP 36.2–36.7; O2SAT 97–100
[2021-02-24 17:56] LABS: Add Manual Diff / Slide Review NO; Basophils Absolute Auto 100 /uL (0-100); Basophils Percent Auto 0.8 % (0-2); Eosinophils Absolute Auto 200 /uL (0-450); Eosinophils Percent Auto 1.2 % (2-4); Hematocrit 25.1 % (36-46); Hemoglobin 8.3 g/dL (12.0-16.0); Lymphocytes Absolute Auto 3300 /uL (1100-4500); Lymphocytes Percent Auto 25.3 % (25-40); Mean Corpuscular HGB Conc 32.9 % (30-36); Mean Corpuscular Hemoglobin 32.9 PG (26-34); Mean Corpuscular Volume 99.9 fL (80-100); Monocytes Absolute Auto 1500 /uL (0-900); Monocytes Percent Auto 11.3 % (3-14); Neutrophils Absolute Auto 8000 /uL (1500-7000); Neutrophils Percent Auto 61.4 % (50-75); Platelet Count 220 X10^3/uL (150-400); Red Blood Cell Count 2.52 X10^6/uL (4.0-5.2); Red Cell Distribution Width 14.7 % (11.6-14.8)
--- NOTE | 2021-02-24 17:58 | ED_ITS ---
HPI - GI Bleed General Chief complaint: GI Bleed Stated complaint: vomiting blood Time Seen by Provider: 02/24/21 17:38 Source: patient and family Mode of arrival: Wheelchair Limitations: no limitations History of Present Illness HPI Narrative: 80-year-old woman diagnosed with ovarian cancer in 2016 with surgical intervention and colostomy continues on treatments with infusions approximately twice a month most recently 48 hours ago. Her oncology team is at [facility]. In August of this year she presented with acute upper GI bleeding that was eventually found to be ulcers for which she underwent surgery again at [facility] with Dr. Tamayo and a ?14 day treatment of pills?. Records from [facility] have been requested. She presents today complaining of black stools for the last 2-3 days significantly worse since last night with continuous black stool filling her colostomy bag. She has been having increasing nausea over the course of today and has now had some emesis consisting of coffee-ground to lacey blood. She notes that she has been voiding normally, she was nauseated and somewhat dizzy at home but is feeling better here in the emergency department. Does not complain of any abdominal pain, chest pain, palpitations, orthopnea headache. She has had no recent fevers cough or chills. She has a history of atrial fibrillation for which she is on Brilinta and aspirin, also has a history of chronic lower extremity edema, chronic kidney disease and hypertension. Related Data Home Medications Medication Instructions Recorded Confirmed azilsartan medoxomil 80 mg tablet 80 mg PO DAILY 12/02/18 12/02/18 megestrol 40 mg tablet 40 mg PO BID 12/02/18 12/02/18 Coreg 09/16/20 Crestor 09/16/20 Demadex 09/16/20 Megace 09/16/20 Nitrostat 09/16/20 aspirin 81 mg chewable tablet 09/16/20 ergocalciferol (vitamin D2) 09/16/20 Allergies Allergy/AdvReac Type Severity Reaction Status Date / Time No Known Drug Allergies Allergy Verified 09/16/20 11:13 Review of Systems Review of Systems Narrative: Remainder of complete review of systems is otherwise unremarkable except for that included in the HPI. Patient History Medical History (Updated 02/25/21 @ 03:01 by Yu Romero MD) Brain aneurysm Chronic kidney disease Colostomy in place GI bleeding Hyperlipidemia Hypertension Lower extremity edema Ovarian cancer Paroxysmal atrial fibrillation Surgical History H/O: hysterectomy alcohol intake frequency: 0-2 drinks per day Substance Use Type: does not use Exam Narrative Exam Narrative: General: Healthy appearing, in no acute distress. Able to give a complete and coherent history. Well-nourished well-developed HEENT: Moist mucous membranes, normal sclera with reactive pupils, Neck: supple Respiratory: Lungs are clear to auscultation, no wheezing no rales no rhonchi. Full and symmetrical air movement Cardiac: Regular rate and rhythm no murmurs no bruits Chest: Significant bruising around recently accessed left upper chest wall port Abdomen: Soft, nontender, hyperactive bowel tones, no flank pain, colostomy with black diarrhea Skin: Pale but dry, no rashes Neurologic: Globally weak but Grossly neurologically intact with no obvious asymmetries or abnormalities Extremities: No trauma, well perfused, 1+ bilateral lower extremity edema Psych: Cooperative, appropriate insight and affect Initial Vital Signs Initial Vital Signs: Vital Signs Temperature 98.1 F 02/24/21 17:35 Pulse Rate 86 02/24/21 17:35 Respiratory Rate 24 02/24/21 17:35 Blood Pressure 146/65 H 02/24/21 17:35 Pulse Oximetry 99 02/24/21 17:35 Course Orders Ordered: ED Orders 02/25/21 04:25 Comprehensive Metabolic Panel Stat 02/25/21 04:26 Complete Blood Count NO DIFF Stat Discontinued Medications Ceftriaxone Sodium 2,000 mg/ (Sodium Chloride) 100 mls @ 200 mls/hr IV NOW ONE Stop: 02/24/21 18:32 Last Infusion: 02/24/21 19:23 Dose: 0 mls/hr Documented by: Admin: 02/24/21 18:49 Dose: 200 mls/hr Documented by: NHAN Ondansetron HCl (Ondansetron 4 Mg/2 Ml Inj) 4 mg IV NOW ONE Stop: 02/24/21 18:01 Last Admin: 02/24/21 18:02 Dose: 4 mg Documented by: NHAN Pantoprazole Sodium (Pantoprazole 40 Mg Vial) 80 mg IV NOW ONE Stop: 02/24/21 17:41 Last Admin: 02/24/21 17:59 Dose: 80 mg Documented by: NHAN Pantoprazole Sodium (Pantoprazole 40 Mg Vial) 40 mg IV BID SOHAIL Vital Signs Vital signs: Vital Signs - 8 hr 02/24/21 20:16 02/24/21 20:30 02/24/21 20:46 Temperature Pulse Rate 91 H 91 H 90 Respiratory Rate 20 21 25 H Blood Pressure 112/57 L 118/55 L 101/57 L Pulse Oximetry 98 98 98 02/24/21 20:59 02/24/21 21:00 02/24/21 21:15 Temperature 97.1 F L Pulse Rate 98 H 98 H 87 Respiratory Rate 23 16 17 Blood Pressure 123/62 139/61 107/57 L Pulse Oximetry 98 97 02/24/21 21:17 02/24/21 21:30 02/24/21 21:45 Temperature 97.4 F L Pulse Rate 87 85 89 Respiratory Rate 19 18 23 Blood Pressure 96/55 L 98/60 116/60 Pulse Oximetry 99 97 02/24/21 22:00 02/24/21 22:15 02/24/21 22:30 Temperature Pulse Rate 87 86 87 Respiratory Rate 18 18 20 Blood Pressure 103/62 113/63 Pulse Oximetry 98 98 98 02/24/21 22:31 02/24/21 22:45 02/24/21 23:00 Temperature 98.1 F Pulse Rate 92 H 87 87 Respiratory Rate 16 18 23 Blood Pressure 121/65 124/57 L 122/63 Pulse Oximetry 100 98 98 02/24/21 23:15 02/24/21 23:23 02/24/21 23:24 Temperature 97.6 F Pulse Rate 86 71 75 Respiratory Rate 19 20 20 Blood Pressure 131/64 109/56 L 109/56 L Pulse Oximetry 97 97 02/24/21 23:30 02/24/21 23:44 02/24/21 23:45 Temperature 97.8 F Pulse Rate 84 85 85 Respiratory Rate 24 18 19 Blood Pressure 117/55 L 117/55 L Pulse Oximetry 98 98 02/25/21 00:00 02/25/21 00:15 02/25/21 00:30 Temperature Pulse Rate 86 84 62 Respiratory Rate 15 19 18 Blood Pressure 119/60 118/56 L Pulse Oximetry 98 97 97 02/25/21 00:45 02/25/21 01:00 02/25/21 01:15 Temperature Pulse Rate 86 85 86 Respiratory Rate 20 17 20 Blood Pressure 112/56 L 115/62 115/73 Pulse Oximetry 98 98 98 02/25/21 01:30 02/25/21 01:45 02/25/21 01:55 Temperature 98.8 F Pulse Rate 85 87 83 Respiratory Rate 19 23 22 Blood Pressure 120/75 121/76 121/76 Pulse Oximetry 97 98 02/25/21 02:00 02/25/21 02:30 02/25/21 03:00 Temperature Pulse Rate 101 H 83 87 Respiratory Rate 23 16 25 H Blood Pressure Pulse Oximetry 97 98 02/25/21 03:30 Temperature Pulse Rate 88 Respiratory Rate 23 Blood Pressure Pulse Oximetry 98 MDM - GI Bleed Medical Records Medical records narrative: Hospital lower obtained. Indicate she underwent EGD on September 17 that showed 2 antral stomach ulcers nonbleeding no other interventions were performed. Recommended PPI and Brilinta was started on day of discharge. Lab Data Result diagrams: 02/24/21 17:45 02/24/21 17:45 Labs: Lab Results 02/24/21 02/24/21 02/24/21 Range/Units 17:45 17:45 17:45 WBC 13.0 H (4.5-11.0) X10^3/uL RBC 2.52 L (4.0-5.2) X10^6/uL Hgb 8.3 L (12.0-16.0) g/dL Hct 25.1 L (36-46) % MCV 99.9 (80-100) fL MCH 32.9 (26-34) PG MCHC 32.9 (30-36) % RDW 14.7 (11.6-14.8) % Plt Count 220 (150-400) X10^3/uL Neut % (Auto) 61.4 (50-75) % Lymph % (Auto) 25.3 (25-40) % [place] % (Auto) 11.3 (3-14) % Eos % (Auto) 1.2 L (2-4) % Baso % (Auto) 0.8 (0-2) % Neut # (Auto) 8000 H (4656-8281) /uL Lymph # (Auto) 3300 (9012-5021) /uL [place] # (Auto) 1500 H (0-900) /uL Eos # (Auto) 200 (0-450) /uL Baso # (Auto) 100 (0-100) /uL PT (10.1-12.7) SECONDS INR (0.9-1.3) APTT (26.4-36.2) SECONDS Sodium 140 (137-145) mmol/L Potassium 3.8 (3.4-5.1) mmol/L Chloride 105 (98-107) mmol/L Carbon Dioxide 24 (22-32) mmol/L BUN 57 H (7-17) mg/dL Creatinine 1.34 H (0.52-1.04) mg/dL Estimated GFR 38.0 L (>60) mL/min BUN/Creatinine Ratio 42.5 H (6-22) Glucose 171 H (80-110) mg/dL Lactate 3.2 H (0.7-2.1) mmol/L Calcium 8.9 (8.4-10.2) mg/dL Total Bilirubin 0.5 (0.2-1.3) mg/dL AST 26 (14-36) IU/L ALT 18 (<35) IU/L Alkaline Phosphatase 51 (38-126) U/L Total Creatine Kinase 89 (30-135) U/L CK-MB (CK-2) TNP CK-MB (CK-2) Rel Index TNP Troponin I < 0.012 (0.01-0.034) ng/mL Total Protein 7.2 (6.3-8.2) g/dL Albumin 4.0 (3.5-5.0) g/dL Globulin 3.2 (1.7-4.1) g/dL Albumin/Globulin Ratio 1.3 (1.0-2.8) SARS-CoV-2 (PCR) (Negative) Blood Type Antibody Screen Crossmatch 02/24/21 02/24/21 02/24/21 Range/Units 17:45 17:45 17:55 WBC (4.5-11.0) X10^3/uL RBC (4.0-5.2) X10^6/uL Hgb (12.0-16.0) g/dL Hct (36-46) % MCV (80-100) fL MCH (26-34) PG MCHC (30-36) % RDW (11.6-14.8) % Plt Count (150-400) X10^3/uL Neut % (Auto) (50-75) % Lymph % (Auto) (25-40) % [place] % (Auto) (3-14) % Eos % (Auto) (2-4) % Baso % (Auto) (0-2) % Neut # (Auto) (0135-5103) /uL Lymph # (Auto) (0434-4468) /uL [place] # (Auto) (0-900) /uL Eos # (Auto) (0-450) /uL Baso # (Auto) (0-100) /uL PT 12.3 (10.1-12.7) SECONDS INR 1.1 (0.9-1.3) APTT 32 D (26.4-36.2) SECONDS Sodium (137-145) mmol/L Potassium (3.4-5.1) mmol/L Chloride (98-107) mmol/L Carbon Dioxide (22-32) mmol/L BUN (7-17) mg/dL Creatinine (0.52-1.04) mg/dL Estimated GFR (>60) mL/min BUN/Creatinine Ratio (6-22) Glucose (80-110) mg/dL Lactate (0.7-2.1) mmol/L Calcium (8.4-10.2) mg/dL Total Bilirubin (0.2-1.3) mg/dL AST (14-36) IU/L ALT (<35) IU/L Alkaline Phosphatase (38-126) U/L Total Creatine Kinase (30-135) U/L CK-MB (CK-2) CK-MB (CK-2) Rel Index Troponin I (0.01-0.034) ng/mL Total Protein (6.3-8.2) g/dL Albumin (3.5-5.0) g/dL Globulin (1.7-4.1) g/dL Albumin/Globulin Ratio (1.0-2.8) SARS-CoV-2 (PCR) Negative (Negative) Blood Type A Positive Antibody Screen Negative Crossmatch See Detail 02/24/21 Range/Units 20:30 WBC (4.5-11.0) X10^3/uL RBC (4.0-5.2) X10^6/uL Hgb (12.0-16.0) g/dL Hct (36-46) % MCV (80-100) fL MCH (26-34) PG MCHC (30-36) % RDW (11.6-14.8) % Plt Count (150-400) X10^3/uL Neut % (Auto) (50-75) % Lymph % (Auto) (25-40) % [place] % (Auto) (3-14) % Eos % (Auto) (2-4) % Baso % (Auto) (0-2) % Neut # (Auto) (0300-8999) /uL Lymph # (Auto) (2266-6742) /uL [place] # (Auto) (0-900) /uL Eos # (Auto) (0-450) /uL Baso # (Auto) (0-100) /uL PT (10.1-12.7) SECONDS INR (0.9-1.3) APTT (26.4-36.2) SECONDS Sodium (137-145) mmol/L Potassium (3.4-5.1) mmol/L Chloride (98-107) mmol/L Carbon Dioxide (22-32) mmol/L BUN (7-17) mg/dL Creatinine (0.52-1.04) mg/dL Estimated GFR (>60) mL/min BUN/Creatinine Ratio (6-22) Glucose (80-110) mg/dL Lactate 2.3 H (0.7-2.1) mmol/L Calcium (8.4-10.2) mg/dL Total Bilirubin (0.2-1.3) mg/dL AST (14-36) IU/L ALT (<35) IU/L Alkaline Phosphatase (38-126) U/L Total Creatine Kinase (30-135) U/L CK-MB (CK-2) CK-MB (CK-2) Rel Index Troponin I (0.01-0.034) ng/mL Total Protein (6.3-8.2) g/dL Albumin (3.5-5.0) g/dL Globulin (1.7-4.1) g/dL Albumin/Globulin Ratio (1.0-2.8) SARS-CoV-2 (PCR) (Negative) Blood Type Antibody Screen Crossmatch ECG Data Interpretation: Sinus rhythm at a rate of 85 Slightly leftward axis No acute ischemic changes MDM Narrative Medical decision making narrative: 80-year-old woman with a history of ovarian cancer prior upper GI bleed that was reportedly related to gastric ulcers, records have been requested. She did have some type of surgical intervention in August after similar presentation. She seems to been bleeding for at least 3 days and more briskly over the last 24 hours now with black/red vomitus as well. She was slightly orthostatic home however she clinically looks remarkably well on initial presentation in the emergency department. She is not tachycardic, she is on carvedilol,. She is not hypotensive. Initial H&H is 8.3 and 25.1 with continued active bleeding from both her colostomy and vomitus. Will transfuse 2 units of packed red cells. She has been given Zofran and Protonix. Will contact General surgery regarding further disposition. 8:15pm [facility] transfer center calls back and information is given. Prior to this [facility] said they would review this case with their executive team, she is currently wait listed with Lorena barrera and kristina ricci/[facility] in [place] 845 reviewed with [facility] coordination center will continue to look for meds 900 return call from [facility] with Gastroenterology, Girish Garza. Reviewed findings. Dr. Garza agreed to take patient in transfer. Will await call to confirm bed placement. 905 patient is updated on findings. She continues to have colostomy melena but no continued vomiting. She is getting her 1st unit of packed red cells. She is slightly tachycardic at 100 but otherwise doing quite well at this point. 9:[address] [facility] Derian FIGUEROA, agrees that pt needs admission. Dr Salas Hospitalist accepting. put on bed availabilty wait list. Don't expect beds until tomorrow at earliest 1114pm Prov Tien. Dr Casarez, hospitalist. Accepts patient. Bed expected to be available in about 4 hours. patient is doing well. 2nd unit started. Lactic down from 3.2 to 2.3. HR down to 86 and pt is comfortable. 300 Prov Tien has a bed available and transport will be arranged. Pt and her are updated. Will notify and [facility] that an alternate bed has been located for the patient. 408am transport here and report has been called. patient remains stable, still with black stool out put but vomitting has resolved. Discharge Plan Departure Patient Disposition: [facility] Clinical Impression: GI bleeding Qualifiers: GI bleed type/associated pathology: gastrointestinal hemorrhage with hematemesis Qualified Code(s): K92.0 - Hematemesis Prescriptions: No Action aspirin 81 mg Tablet,Chewable RF: 0 Coreg 12.5 mg RF: 0 Megace 40 mg RF: 0 Crestor 40 mg RF: 0 Nitrostat 0.4 mg RF: 0 ergocalciferol (vitamin D2) 2,000 Units RF: 0 Demadex 10 mg RF: 0 megestrol 40 mg tablet 40 mg PO BID RF: 0 Edarbi 80 mg tablet 80 mg PO DAILY RF: 0 Referrals: Elena Huerta MD [Primary Care Provider] -
[2021-02-24] MEDS: PANTOPRAZOLE 40 MG VIAL 80 MG IV (17:59)
[2021-02-24] MEDS: ONDANSETRON 4 MG/2 ML INJ IV (18:02)
[2021-02-24 18:03] LABS: INR 1.1 (0.9-1.3); Prothrombin Time 12.3 SECONDS (10.1-12.7)
[2021-02-24 18:05] LABS: PTT Partial Thromboplastin Tim 32 SECONDS (26.4-36.2)
[2021-02-24 18:08] LABS: Alanine Aminotransferase 18 IU/L (<35); Albumin Globulin Ratio 1.3 (1.0-2.8); Alkaline Phosphatase 51 U/L (38-126); Aspartate Aminotransferase 26 IU/L (14-36); BUN Creatinine Ratio 42.5 (6-22); Bilirubin Total 0.5 mg/dL (0.2-1.3); Blood Urea Nitrogen 57 mg/dL (7-17); Calcium 8.9 mg/dL (8.4-10.2); Carbon Dioxide 24 mmol/L (22-32); Chloride 105 mmol/L (98-107); Creatine Kinase 89 U/L (30-135); Globulin 3.2 g/dL (1.7-4.1); Glucose 171 mg/dL (80-110); HEMOLYSIS < 15 (0-50); Lactate (Lactic Acid) 3.2 mmol/L (0.7-2.1); Potassium 3.8 mmol/L (3.4-5.1); Sodium 140 mmol/L (137-145); Total Protein 7.2 g/dL (6.3-8.2)
[2021-02-24 18:19] LABS: Troponin I < 0.012 ng/mL (0.01-0.034)
[2021-02-24] MEDS: cefTRIAXone 2,000 MG in SODIUM CHLORIDE 0.9% 100 ML 200 ML IV (18:49)
[2021-02-24 19:16] LABS: COVID19 - ADMIT (NP swab/PCR) Negative (Negative)
--- NOTE | 2021-02-24 19:24 | PC.NURSE ---
Pt consented for blood transfusion. All questions answered and signed document at bedside.
[2021-02-24 19:48] LABS: Reflexed Lactate in 2 Hours Y
[2021-02-24 20:50] LABS: Lactate 2HR (Lactic Acid Rflx) 2.3 mmol/L (0.7-2.1)
[2021-02-25] VITALS (13 sets, daily range): BP systolic 112–121; BP diastolic 56–76; PULSE 62–101; RESP 15–25; TEMP 37.1; O2SAT 97–98
== END 2021-02-25 03:48 | disposition short-term general hospital (02) ==
PROVIDERS: Emergency Medicine; Emergency Provider Emergency Medicine; PCP Obstetrics & Gynecology Gynecologic Oncology
DX: K92.0 Hematemesis (principal); R00.0 Tachycardia, unspecified; Z20.822 Contact with and (suspected) exposure to COVID-19
CPT/HCPCS: 36415; 36430; 80053; 82550; 83605; 84484; 85025; 85610; 85730; 86850; 86900; 86901; 87635; 93005; 96365; 96375; 99285; C9803; P9016; C9113; J0696; J2405

== ENCOUNTER → 2021-07-06 09:19 | Outpatient (CLI) | payer MEDICARE, OTHER, SELFPAY ==
[2021-07-06 12:57] LABS: COVID19 -Nasal RAPID Negative (Negative)
== END ==
PROVIDERS: PCP Obstetrics & Gynecology Gynecologic Oncology; Visit Provider Family Medicine Sleep Medicine
DX: Z20.822 Contact with and (suspected) exposure to COVID-19 (principal)
CPT/HCPCS: 87635; C9803

== ENCOUNTER 2021-07-09 09:37 | Day surgery (SDC) | payer MEDICARE, OTHER, SELFPAY ==
--- NOTE | 2021-07-09 | PATH_ITS ---
[facility] Accession Number: [id number] No. of containers..02 Tissue . 01 Material submitted: . PART A: gastrointestinal site - GASTRIC POLYP BIOPSY PART B: esophagus, E-G Junction - GEJ BIOPSY . 01 Diagnosis: A. Gastric Polyp, Biopsy: Gastric antral mucosa with reactive foveolar hyperplasia and focal erosion. Negative for Helicobacter organisms by immunohistochemistry. Negative for intestinal metaplasia. Negative for dysplasia or malignancy. . B. Gastroesophageal Junction, Biopsy: Squamocolumnar junctional mucosa with mild chronic inflammation. Negative for specialized intestinal metaplasia on AB/PAS stain. Negative for dysplasia or malignancy. . MRV 07/13/2021 1418 Local . 01 Electronically signed: . Robert Parham MD, PhD, Pathologist NPI- [id number] . 01 Gross description: . Part A: GASTRIC POLYP BIOPSY: Received in formalin are 3 fragments of cole soft tissue measuring 0.1 x 0.1 x 0.1 cm in aggregate. Specimen is submitted in its entirety in 1 cassette. Part B: GEJ BIOPSY: Received in formalin is 1 fragment(s) of cole, soft tissue measuring 0.1 x 0.1 x 0.1 cm submitted entirely in 1 cassette(s) /FRENCH 07/10/2021 1954 Local . 01 Microscopic: . A. An immunohistochemical stain was performed to evaluate for Helicobacter organisms and is negative. The control stain showed appropriate reactivity. . B. An AB/PAS stain is performed to evaluate for specialized intestinal metaplasia, and is negative for goblet cells. A control stain shows appropriate reactivity. . * This test was developed and its performance characteristics determined by [facility]. It has not been cleared or approved by the U.S. Food and Drug Administration. The FDA has determined that such clearance or approval is not necessary. This test is used for clinical purposes. It should not be regarded as investigational or for research. . 01 Pathologist provided ICD-10: K29.70, K20.80 . 01 CPT . 022595, 537830, P27035, 556114 Specimen Comment: A courtesy copy of this report has been sent to [phone] Performed at: 01 [facility] [address] [place] [address] [address] [facility], [place], [place] [id number] MD Hubert Laura MD Phone: [phone]
[2021-07-09] MEDS: SODIUM CHLORIDE 0.9% 1,000 ML 84 ML IV (10:13)
[2021-07-09 10:24] VITALS: BP 167/97; PULSE 80; RESP 18; TEMP 37.1; O2SAT 98; BMI 29.4
--- NOTE | 2021-07-09 11:11 | PM.HP.1 ---
History of Present Illness History of Present Illness Date Patient Seen: 07/09/21 Time Patient Seen: 11:11 Chief complaint: SDC Narrative: I reviewed my note from April 02. Patient is no longer taking Brilinta Patient History Medical History Brain aneurysm Chronic kidney disease Colostomy in place GI bleeding Hyperlipidemia Hypertension Lower extremity edema Ovarian cancer Paroxysmal atrial fibrillation Surgical History H/O: hysterectomy Family & Social History Social History: household members spouse Tobacco & Substance use: Smoking Status Former smoker alcohol intake current alcohol intake frequency 0-2 drinks per day Substance Use Type does not use Meds Home Medications and Allergies Home Medications Medication Instructions Recorded Confirmed Type azilsartan medoxomil 80 mg tablet 80 mg PO DAILY 12/02/18 07/09/21 History Coreg 12.5 mg PO DAILY 09/16/20 07/09/21 History Crestor 40 mg PO DAILY 09/16/20 07/09/21 History Demadex 10 mg PO DAILY 09/16/20 07/09/21 History aspirin 81 mg chewable tablet 81 mg PO DAILY 09/16/20 07/09/21 History ergocalciferol (vitamin D2) 2,000 units PO DAILY 09/16/20 07/09/21 History carvedilol 12.5 mg tablet 12.5 mg PO ONCE HS 07/09/21 07/09/21 History ticagrelor 90 mg tablet (Brilinta) 90 mg PO DAILY 07/09/21 07/09/21 History Allergies Allergy/AdvReac Type Severity Reaction Status Date / Time No Known Drug Allergies Allergy Verified 09/16/20 11:13 Review of Systems Review of Systems ROS: Yes All systems reviewed with the patient and are negative except as otherwise documented Exam Vital Signs (past 8 hours): - 07/09/21 10:24 Temperature 98.7 F Pulse Rate 80 Respiratory Rate 18 Blood Pressure 167/97 H Pulse Oximetry 98 Oxygen Delivery Method Room Air Const General: cooperative and comfortable Orientation: alert HENMT Head: normocephalic Ears: external ears normal Nose: external nose normal Face and sinus: normal facial exam Mouth: oral mucosae normal Eyes General: appearance normal, both eyes and all related structures Neck Neck: normal visual inspection Chest Chest: normal inspection of the chest Resp Effort & Inspection: normal respiratory effort Cardio Rate: regular rate GI Inspection: normal to inspection Skin General: no rashes or lesions noted and No jaundice Neuro General: patient alert and moves all extremities Cognition: normal cognition Speech: speech normal Extrem General: no pedal edema Psych Appearance: grossly normal Assessment & Plan Assessment & Plan narrative: 80-year-old female with a history of gastric ulcer that has been hemorrhagic. She is now off Brilinta. Surveillance EGD is indicated to ensure ulcer healing. EGD is planned for today. Time Spent With Patient Critical Care time: I spent a total of [] minutes of critical care time on this patient's care today; this time is exclusive of procedural time.
--- NOTE | 2021-07-09 11:13 | PM.PREOP ---
Pre-operative Note COVID-19 COVID-19 status: Negative Result date/Date tested (Pos, Neg/Pending): 07/06/21 Criteria for continued procedure: Possibility delay results in more complex future surgery or treatment Interval Note History & Physical reviewed/Exam performed by Physician: Yes Changes to H&P: Yes ASA Class (for procedural sedation): II
--- NOTE | 2021-07-09 12:09 | P.OP.EGD_ITS ---
Operative Date/Time/Diagnoses Date of procedure: 07/09/21 Time of procedure: 12:10 Pre-op diagnosis: Gastric ulcer history Post-op diagnosis: same Procedure & Clinicians Study performed: EGD with biopsies Same procedure as scheduled: Yes Indications: Gastric ulcer history Surgeon: Alex Liu Procedure Notes SCOAP/Timeout: Done Procedure in detail: After the risks and benefits were explained, written and verbal informed consent was obtained. The patient was brought into the procedure room and placed into the left lateral decubitus position. Please see nurse laborer marine terminal notes for sedation details. The scope was introduced into the mouth through the bite block and advanced under direct visualization to the 2nd portion of the duodenum. The scope was slowly withdrawn carefully examining the mucosa for any defects or lesions. Retroflexed views were accomplished in the stomach. The stomach was decompressed, the scope was then removed from the patient who tolerated the procedure well. Sedation minutes: 15 Complications: none Impression: 1. Duodenum this was visually unremarkable from the bulb through to the 2nd portion. 2. Esophagus: The GEJ was at about 41 cm from the incisors. There was a little mucosal irregularity in the 6:00 a.m. location which was targeted for biopsy. There was a subtle sliding hiatal hernia. No other significant pathology appreciated. 3. Stomach: In the pre-pyloric region there were a few scattered fairly well healed diminutive ulcerations clustered together. On the opposite wall a little more proximal in the antrum was a fairly large excavated ulcer with edges that appeared fairly heaped up. There was some irregular mucosa associated with part of the edge work of the ulcer and this was targeted for biopsy in 3 different locations. The greatest dimension of this process including the heaped up edges was up to perhaps 2 cm in greatest dimension. This was somewhat firm under the closed forceps. I did not appreciate any nonbleeding visible vessels. No indication for endo therapy was evident. Endoscopic diagnosis 1. Persistent large antral ulceration 2. Small sliding hiatal hernia 3. GEJ irregularity Post-procedure Plan for aftercare: 1. Await histopathology 2. Continue pantoprazole twice daily. 3. I am concerned that this may represent ovarian metastases; follow-up in Oncology will likely need to be arranged. Disposition: PACU
[2021-07-09 12:13] VITALS: BP 114/80; PULSE 87; RESP 14; TEMP 36.2; O2SAT 97
[2021-07-09 12:18] VITALS: BP 124/65; PULSE 66; RESP 16; O2SAT 99
[2021-07-09 12:23] VITALS: BP 136/69; PULSE 79; RESP 16; O2SAT 98
[2021-07-09 12:28] VITALS: BP 140/71; PULSE 75; RESP 11; TEMP 36.4; O2SAT 98
[2021-07-09 12:35] VITALS: BP 152/81; PULSE 66; RESP 15; O2SAT 99
== END 2021-07-09 13:00 | disposition home or self-care (01) ==
PROVIDERS: PCP Obstetrics & Gynecology Gynecologic Oncology; Referring Provider Internal Medicine Gastroenterology; Visit Provider Internal Medicine Gastroenterology
PROC: 0DJ08ZZ Inspection of Upper Intestinal Tract, Via Natural or Artificial Opening Endoscopic (ICD-10-PCS; CPT 43235; principal; 2021-07-09 11:00)
DX: K29.70 Gastritis, unspecified, without bleeding (principal); D64.9 Anemia, unspecified; C56.9 Malignant neoplasm of unspecified ovary; K44.9 Diaphragmatic hernia without obstruction or gangrene; K20.80 Other esophagitis without bleeding
CPT/HCPCS: 43239; J1642; J2704

== ENCOUNTER 2022-06-28 03:00 | Emergency (ER) | payer MEDICARE, OTHER, SELFPAY ==
[2022-06-28] VITALS (8 sets, daily range): BP systolic 127–222; BP diastolic 63–105; PULSE 76–138; RESP 18; TEMP 36.6; O2SAT 97; BMI 28.6
--- NOTE | 2022-06-28 03:12 | DI.RAD.S_ITS ---
PROCEDURE: XR CHEST 1V INDICATIONS: Chest pain TECHNIQUE: One view of the chest was acquired. COMPARISON: [facility], CR, XR CHEST 1V, 12/02/2018, 12:50. FINDINGS: Surgical changes and devices: Left chest Port-A-Cath Lungs and pleura: Lungs are clear. No pleural effusions or pneumothorax. Mediastinum: Mediastinal contours appear normal. Heart size is normal. Bones and chest wall: No suspicious bony lesions. Overlying soft tissues appear unremarkable. IMPRESSION: No evidence acute pulmonary process. Comment: Final report is concordant with preliminary interpretation provided by [facility]. Dictated by: Marty Mcclendon M.D. on 06/28/2022 at 8:03 Approved by: Marty Mcclendon M.D. on 06/28/2022 at 8:06
--- NOTE | 2022-06-28 03:19 | ED_ITS ---
HPI - Chest Pain General Chief Complaint: Chest Pain Stated Complaint: high blood pressure Time Seen by Provider: 06/28/22 03:03 Source: patient and family Mode of arrival: Wheelchair Limitations: no limitations History of Present Illness HPI narrative: Patient is an 81-year-old female. History of paroxysmal atrial fibrillation. Is not on anticoagulation. Denies history of heart failure. Does have a history of coronary artery disease with stent placement. At approximately 1100 hours last evening she started to feel like her heart was beating fast and she started get some chest discomfort. She took her blood pressure was elevated. Symptoms were not resolving which brought her into the emergency department. She feels like her symptoms have improved somewhat but not completely resolved at the time of my evaluation. Related Data Home Medications Medication Instructions Recorded Confirmed azilsartan medoxomil 80 mg tablet 80 mg PO DAILY 12/02/18 07/09/21 Coreg 12.5 mg PO DAILY 09/16/20 07/09/21 Crestor 40 mg PO DAILY 09/16/20 07/09/21 Demadex 10 mg PO DAILY 09/16/20 07/09/21 aspirin 81 mg chewable tablet 81 mg PO DAILY 09/16/20 07/09/21 ergocalciferol (vitamin D2) 2,000 units PO DAILY 09/16/20 07/09/21 carvedilol 12.5 mg tablet 12.5 mg PO ONCE HS 07/09/21 07/09/21 ticagrelor 90 mg tablet (Brilinta) 90 mg PO DAILY 07/09/21 07/09/21 Allergies Allergy/AdvReac Type Severity Reaction Status Date / Time No Known Drug Allergies Allergy Verified 09/16/20 11:13 Review of Systems Constitutional Constitutional: Reports system reviewed and no additional complaints, except as documented Cardiovascular Cardiovascular: Reports system reviewed and no additional complaints, except as documented Respiratory Respiratory: Reports system reviewed and no additional complaints, except as documented Gastrointestinal Gastrointestinal: Reports system reviewed and no additional complaints, except as documented Integumentary/Breasts Skin/Breast: Reports system reviewed and no additional complaints, except as d ocumented Neurologic Neurologic: Reports system reviewed and no additional complaints, except as documented Hematologic/Lymphatic On Anticoagulants: No Patient History Medical History Brain aneurysm Chronic kidney disease Colostomy in place GI bleeding Hyperlipidemia Hypertension Lower extremity edema Ovarian cancer Paroxysmal atrial fibrillation Surgical History H/O: hysterectomy Social History household members: spouse Smoking Status: Former smoker alcohol intake: current Smoking Status: Former smoker alcohol intake frequency: 0-2 drinks per day Substance Use Type: does not use Exam Initial Vital Signs Initial Vital Signs: Vital Signs Temperature 97.8 F 06/28/22 03:00 Pulse Rate 138 H 06/28/22 03:00 Respiratory Rate 18 06/28/22 03:00 Blood Pressure 141/94 H 06/28/22 03:00 Pulse Oximetry 97 06/28/22 03:00 Oxygen Delivery Method 06/28/22 03:00 HENMT Head: normal to inspection and normocephalic Resp Effort & Inspection: normal respiratory effort Auscultation: clear to auscultation bilaterally Cardio Rate: tachycardic Rhythm: regular rhythm GI Inspection: normal to inspection Skin General: no rashes or lesions noted Neuro General: patient alert, patient awake and moves all extremities Extrem General: No edema Course Orders Ordered: ED Orders 06/28/22 03:12 XR chest 1V Stat EKG-12 Lead Stat 06/28/22 03:15 Basic Metabolic Panel Stat Complete Blood Count AUTO DIFF Stat Magnesium Stat Troponin & CK Cardiac Panel Stat 06/28/22 03:47 EKG-12 Lead Stat 06/28/22 05:15 Troponin & CK Cardiac Panel Stat Discontinued Medications Diltiazem HCl (Diltiazem 5 Mg/Ml Sdv) 10 mg IV NOW ONE Stop: 06/28/22 03:20 Last Admin: 06/28/22 03:27 Dose: 10 mg Documented By: HNG Vital Signs Vital signs: Vital Signs - 8 hr 06/28/22 03:00 06/28/22 03:27 06/28/22 03:29 Temperature 97.8 F Pulse Rate 138 H 138 H Respiratory Rate 18 Blood Pressure 141/94 H 174/89 H 174/89 H Pulse Oximetry 97 Oxygen Delivery Method Room Air 06/28/22 03:34 06/28/22 03:46 06/28/22 04:04 Temperature Pulse Rate 100 H 81 80 Respiratory Rate Blood Pressure 222/105 H 145/69 H 131/76 Pulse Oximetry Oxygen Delivery Method 06/28/22 05:27 Temperature Pulse Rate 76 Respiratory Rate Blood Pressure 148/98 H Pulse Oximetry Oxygen Delivery Method MDM - Chest Pain Differential Diagnosis Differential diagnosis: Likely stable angina, unstable angina pectoris, atypical chest pain, chest pain and other Condition is:: Improved Chronic Condition is having:: Moderate exacerbation Condition is at treatment goal?: Yes Medical Records Data Attestation: I reviewed the patient's medical records. Lab Data Attestation: I reviewed the patient's lab results. 06/28/22 03:15 06/28/22 03:15 Labs: Lab Results 06/28/22 06/28/22 06/28/22 Range/Units 03:15 03:15 05:20 WBC 6.6 (4.5-11.0) X10^3/uL RBC 3.47 L (4.0-5.2) X10^6/uL Hgb 10.8 L (12.0-16.0) g/dL Hct 32.6 L (36-46) % MCV 93.9 (80-100) fL MCH 31.1 (26-34) PG MCHC 33.1 (30-36) % RDW 15.2 H (11.6-14.8) % Plt Count 167 (150-400) X10^3/uL Neut % (Auto) 54.4 (50-75) % Lymph % (Auto) 23.4 L (25-40) % [place] % (Auto) 18.2 H (3-14) % Eos % (Auto) 3.0 (2-4) % Baso % (Auto) 1.0 (0-2) % Neut # (Auto) 3600 (5660-3704) /uL Lymph # (Auto) 1500 (6512-1517) /uL [place] # (Auto) 1200 H (0-900) /uL Eos # (Auto) 200 (0-450) /uL Baso # (Auto) 100 (0-100) /uL Sodium 139 (137-145) mmol/L Potassium 4.0 (3.4-5.1) mmol/L Chloride 104 (98-107) mmol/L Carbon Dioxide 23 (22-32) mmol/L BUN 19 H (7-17) mg/dL Creatinine 1.15 H (0.52-1.04) mg/dL Estimated GFR 48 L (>60) mL/min BUN/Creatinine Ratio 16.5 (6-22) Glucose 120 H (80-110) mg/dL Calcium 9.5 (8.4-10.2) mg/dL Magnesium 1.8 (1.6-2.3) mg/dL Total Creatine Kinase 65 59 (30-135) U/L CK-MB (CK-2) TNP TNP CK-MB (CK-2) Rel Index TNP TNP Troponin I < 0.012 < 0.012 (0.01-0.034) ng/mL Imaging Data Chest x-ray: Radiologist's Impression: No acute cardiopulmonary abnormality identified ECG Data Attestation: I personally reviewed and interpreted this ECG as follows: Interpretation: Presentation EKG Atrial fibrillation Ventricular rate of 124 Normal axis Normal QRS Normal QTC No ST T wave changes Post-conversion EKG Sinus rhythm Frequent PVCs Rate of [address] T wave changes MDM Narrative Medical decision making narrative: Patient was in atrial fibrillation was tachycardic with a heart rate 115-145. She was also hypertensive. Her symptoms started at 1100 hours last evening. She was given 1 dose of diltiazem. After short period of time she did convert to sinus rhythm. Her blood pressure also improved. Her chest discomfort improved as well. She had 2- troponins. She states she feels much better. I suspect that her presenting symptoms were related to her atrial fibrillation. She does have history of paroxysmal AFib. Will discharge patient home. Will have her continue all of her medications as directed. She was given return precautions. She expressed understanding and agreement. Discharge Plan Departure Patient Disposition: Home Clinical Impression: Paroxysmal atrial fibrillation Instructions: DI for Atrial Fibrillation Activity Restrictions/Additional Instructions: Recommend that you continue to take all of your medications as directed. Contact your primary provider for a follow-up. Return to the emergency department for any new symptoms. Prescriptions: No Action aspirin 81 mg Tablet,Chewable 81 mg PO DAILY Coreg 12.5 mg 12.5 mg PO DAILY Crestor 40 mg 40 mg PO DAILY ergocalciferol (vitamin D2) 2,000 Units 2,000 units PO DAILY Demadex 10 mg 10 mg PO DAILY Brilinta 90 mg tablet 90 mg PO DAILY carvedilol 12.5 mg tablet 12.5 mg PO ONCE HS Edarbi 80 mg tablet 80 mg PO DAILY Referrals: Elena Huerta MD [Primary Care Provider] - Stand Alone Forms: Patient Portal/API
[2022-06-28] MEDS: dilTIAZem 5 MG/ML SDV 10 MG IV (03:27)
[2022-06-28 03:32] LABS: Add Manual Diff / Slide Review NO; Basophils Absolute Auto 100 /uL (0-100); Eosinophils Absolute Auto 200 /uL (0-450); Hematocrit 32.6 % (36-46); Hemoglobin 10.8 g/dL (12.0-16.0); Lymphocytes Absolute Auto 1500 /uL (1100-4500); Lymphocytes Percent Auto 23.4 % (25-40); Mean Corpuscular HGB Conc 33.1 % (30-36); Mean Corpuscular Hemoglobin 31.1 PG (26-34); Mean Corpuscular Volume 93.9 fL (80-100); Monocytes Absolute Auto 1200 /uL (0-900); Monocytes Percent Auto 18.2 % (3-14); Neutrophils Absolute Auto 3600 /uL (1500-7000); Neutrophils Percent Auto 54.4 % (50-75); Platelet Count 167 X10^3/uL (150-400); Red Blood Cell Count 3.47 X10^6/uL (4.0-5.2); Red Cell Distribution Width 15.2 % (11.6-14.8); White Blood Cell Count 6.6 X10^3/uL (4.5-11.0)
[2022-06-28 03:42] LABS: BUN Creatinine Ratio 16.5 (6-22); Blood Urea Nitrogen 19 mg/dL (7-17); Calcium 9.5 mg/dL (8.4-10.2); Carbon Dioxide 23 mmol/L (22-32); Chloride 104 mmol/L (98-107); Creatine Kinase 65 U/L (30-135); Estimated Glomerular Filt Rate 48 mL/min (>60); Glucose 120 mg/dL (80-110); HEMOLYSIS 19 (0-50); Magnesium 1.8 mg/dL (1.6-2.3); Sodium 139 mmol/L (137-145)
[2022-06-28 03:53] LABS: Troponin I < 0.012 ng/mL (0.01-0.034)
--- NOTE | 2022-06-28 04:03 | PC.NURSE ---
Pt appears to have converted to sinus rhythm. reports pressure in chest has improved but not completely disappeared.
[2022-06-28 05:53] LABS: Creatine Kinase 59 U/L (30-135)
[2022-06-28 06:06] LABS: Troponin I < 0.012 ng/mL (0.01-0.034)
== END 2022-06-28 06:36 | disposition home or self-care (01) ==
PROVIDERS: Emergency Provider Emergency Medicine; PCP Obstetrics & Gynecology Gynecologic Oncology
DX: I48.20 Chronic atrial fibrillation, unspecified (principal); I10 Essential (primary) hypertension; Z79.82 Long term (current) use of aspirin
CPT/HCPCS: 36415; 71045; 80048; 82550; 83735; 84484; 85025; 93005; 96374; 99284

== ENCOUNTER 2022-07-29 10:14 | Emergency (ER) | payer MEDICARE, OTHER, SELFPAY ==
[2022-07-29] VITALS (9 sets, daily range): BP systolic 122–189; BP diastolic 59–99; PULSE 75–140; RESP 14; TEMP 36.5; O2SAT 97–99; BMI 28.4
--- NOTE | 2022-07-29 10:24 | DI.RAD.S_ITS ---
PROCEDURE: XR CHEST 1V INDICATIONS: chest pain TECHNIQUE: One view of the chest was acquired. COMPARISON: [facility], CR, XR CHEST 1V, 06/28/2022, 3:26. FINDINGS: Surgical changes and devices: Left chest Port-A-Cath. Apparent addition of a midline generator device. Lungs and pleura: Lungs are clear. No pleural effusions or pneumothorax. Mediastinum: Mediastinal contours appear normal. Heart size is normal. Bones and chest wall: No suspicious bony lesions. Overlying soft tissues appear unremarkable. IMPRESSION: No evidence acute pulmonary process. Dictated by: Marty Mcclendon M.D. on 07/29/2022 at 11:44 Approved by: Marty Mcclendon M.D. on 07/29/2022 at 11:45
[2022-07-29 10:40] LABS: Add Manual Diff / Slide Review NO; Basophils Absolute Auto 100 /uL (0-100); Basophils Percent Auto 0.9 % (0-2); Eosinophils Absolute Auto 100 /uL (0-450); Eosinophils Percent Auto 1.5 % (2-4); Hematocrit 33.4 % (36-46); Hemoglobin 11.1 g/dL (12.0-16.0); Lymphocytes Absolute Auto 1900 /uL (1100-4500); Lymphocytes Percent Auto 27.1 % (25-40); Mean Corpuscular HGB Conc 33.3 % (30-36); Mean Corpuscular Hemoglobin 31.2 PG (26-34); Mean Corpuscular Volume 93.6 fL (80-100); Monocytes Absolute Auto 900 /uL (0-900); Monocytes Percent Auto 12.6 % (3-14); Neutrophils Absolute Auto 4100 /uL (1500-7000); Neutrophils Percent Auto 57.9 % (50-75); Platelet Count 230 X10^3/uL (150-400); Red Blood Cell Count 3.57 X10^6/uL (4.0-5.2); Red Cell Distribution Width 15.1 % (11.6-14.8); White Blood Cell Count 7.1 X10^3/uL (4.5-11.0)
[2022-07-29 10:46] LABS: Prothrombin Time 11.3 SECONDS (10.1-12.7)
[2022-07-29] MEDS: carvediloL 12.5 MG TABLET PO (10:48)
--- NOTE | 2022-07-29 10:48 | ED.ARRPALP ---
HPI - Arrhythmia/Palpitations General Chief Complaint: Arrhythmia/Palpitations Stated Complaint: high blood pressure, rapid heart rate Time Seen by Provider: 07/29/22 10:32 Source: patient Mode of arrival: Ambulatory Limitations: no limitations History of Present Illness HPI narrative: Patient is an 81-year-old female who is here for evaluation which she states is a rapid and irregular heart rhythm. She also states that her blood pressure is elevated. She has not taken her carvedilol this morning. She states she is never had a diagnosis of atrial fibrillation. She does have a ZIO patch on that was ordered by her job service specialist. She denies lightheadedness. No chest pain. Related Data Home Medications Medication Instructions Recorded Confirmed azilsartan medoxomil 80 mg tablet 80 mg PO DAILY 12/02/18 07/09/21 Coreg 12.5 mg PO DAILY 09/16/20 07/09/21 Crestor 40 mg PO DAILY 09/16/20 07/09/21 Demadex 10 mg PO DAILY 09/16/20 07/09/21 aspirin 81 mg chewable tablet 81 mg PO DAILY 09/16/20 07/09/21 ergocalciferol (vitamin D2) 2,000 units PO DAILY 09/16/20 07/09/21 carvedilol 12.5 mg tablet 12.5 mg PO ONCE HS 07/09/21 07/09/21 ticagrelor 90 mg tablet (Brilinta) 90 mg PO DAILY 07/09/21 07/09/21 Allergies Allergy/AdvReac Type Severity Reaction Status Date / Time No Known Drug Allergies Allergy Verified 07/29/22 10:21 Review of Systems Constitutional Constitutional: Reports system reviewed and no additional complaints, except as documented Cardiovascular Cardiovascular: Reports system reviewed and no additional complaints, except as documented Respiratory Respiratory: Reports system reviewed and no additional complaints, except as documented Musculoskeletal Musculoskeletal: Reports system reviewed and no additional complaints, except as documented Integumentary/Breasts Skin/Breast: Reports system reviewed and no additional complaints, except as documented Hematologic/Lymphatic On Anticoagulants: No Patient History Medical History Brain aneurysm Chronic kidney disease Colostomy in place GI bleeding Hyperlipidemia Hypertension Lower extremity edema Ovarian cancer Paroxysmal atrial fibrillation Surgical History H/O: hysterectomy Social History household members: spouse Smoking Status: Former smoker alcohol intake: current Smoking Status: Former smoker alcohol intake frequency: 0-2 drinks per day Substance Use Type: does not use Exam Initial Vital Signs Initial Vital Signs: Vital Signs Temperature 97.7 F 07/29/22 10:16 Pulse Rate 122 H 07/29/22 10:16 Respiratory Rate 14 07/29/22 10:16 Blood Pressure 144/78 H 07/29/22 10:16 Pulse Oximetry 99 07/29/22 10:16 Oxygen Delivery Method 07/29/22 10:16 Const General: cooperative, comfortable and No ill appearing HENMT Head: normal to inspection and normocephalic Resp Effort & Inspection: normal respiratory effort Auscultation: clear to auscultation bilaterally Cardio Rate: tachycardic Rhythm: abnormal rhythm GI Inspection: normal to inspection Skin General: no rashes or lesions noted Neuro General: patient alert, patient awake and moves all extremities Extrem General: capillary refill normal Course Orders Ordered: ED Orders 07/29/22 11:09 Urine Microscopic Stat 07/29/22 11:43 EKG-12 Lead Stat Discontinued Medications Carvedilol (Carvedilol 12.5 Mg Tablet) 12.5 mg PO NOW ONE Stop: 07/29/22 10:35 Last Admin: 07/29/22 10:48 Dose: 12.5 mg Documented By: AN Vital Signs Vital signs: Vital Signs - 8 hr 07/29/22 12:00 07/29/22 12:00 Pulse Rate 75 Blood Pressure 122/59 L Pulse Oximetry 97 MDM - Arrhythmia/Palpitations Lab Data Attestation: I reviewed the patient's lab results. 07/29/22 10:30 07/29/22 10:30 Labs: Lab Results 07/29/22 07/29/22 07/29/22 Range/Units 10:20 10:30 10:30 WBC 7.1 (4.5-11.0) X10^3/uL RBC 3.57 L (4.0-5.2) X10^6/uL Hgb 11.1 L (12.0-16.0) g/dL Hct 33.4 L (36-46) % MCV 93.6 (80-100) fL MCH 31.2 (26-34) PG MCHC 33.3 (30-36) % RDW 15.1 H (11.6-14.8) % Plt Count 230 (150-400) X10^3/uL Neut % (Auto) 57.9 (50-75) % Lymph % (Auto) 27.1 (25-40) % [place] % (Auto) 12.6 (3-14) % Eos % (Auto) 1.5 L (2-4) % Baso % (Auto) 0.9 (0-2) % Neut # (Auto) 4100 (3593-4739) /uL Lymph # (Auto) 1900 (6466-1244) /uL [place] # (Auto) 900 (0-900) /uL Eos # (Auto) 100 (0-450) /uL Baso # (Auto) 100 (0-100) /uL PT 11.3 (10.1-12.7) SECONDS INR 1.0 (0.9-1.3) APTT 33 (26-36) SECONDS Sodium (137-145) mmol/L Potassium (3.4-5.1) mmol/L Chloride (98-107) mmol/L Carbon Dioxide (22-32) mmol/L BUN (7-17) mg/dL Creatinine (0.52-1.04) mg/dL Estimated GFR (>60) mL/min BUN/Creatinine Ratio (6-22) Glucose (80-110) mg/dL Calcium (8.4-10.2) mg/dL Magnesium (1.6-2.3) mg/dL Total Bilirubin (0.2-1.3) mg/dL AST (14-36) IU/L ALT (<35) IU/L Alkaline Phosphatase (38-126) U/L Total Creatine Kinase (30-135) U/L CK-MB (CK-2) CK-MB (CK-2) Rel Index Troponin I (0.01-0.034) ng/mL Total Protein (6.3-8.2) g/dL Albumin (3.5-5.0) g/dL Globulin (1.7-4.1) g/dL Albumin/Globulin Ratio (1.0-2.8) Lipase (23-300) U/L Urine RBC (0-5/HPF) Urine WBC (0-5/HPF) Ur Squamous Epith Cells (0-5/HPF) Urine Bacteria (None) Ur Culture Indicated? SARS-CoV-2 (PCR) Negative (Negative) 07/29/22 07/29/22 Range/Units 10:30 11:09 WBC (4.5-11.0) X10^3/uL RBC (4.0-5.2) X10^6/uL Hgb (12.0-16.0) g/dL Hct (36-46) % MCV (80-100) fL MCH (26-34) PG MCHC (30-36) % RDW (11.6-14.8) % Plt Count (150-400) X10^3/uL Neut % (Auto) (50-75) % Lymph % (Auto) (25-40) % [place] % (Auto) (3-14) % Eos % (Auto) (2-4) % Baso % (Auto) (0-2) % Neut # (Auto) (3972-3902) /uL Lymph # (Auto) (8114-2626) /uL [place] # (Auto) (0-900) /uL Eos # (Auto) (0-450) /uL Baso # (Auto) (0-100) /uL PT (10.1-12.7) SECONDS INR (0.9-1.3) APTT (26-36) SECONDS Sodium 140 (137-145) mmol/L Potassium 4.1 (3.4-5.1) mmol/L Chloride 104 (98-107) mmol/L Carbon Dioxide 25 (22-32) mmol/L BUN 18 H (7-17) mg/dL Creatinine 1.14 H (0.52-1.04) mg/dL Estimated GFR 48 L (>60) mL/min BUN/Creatinine Ratio 15.8 (6-22) Glucose 111 H (80-110) mg/dL Calcium 9.6 (8.4-10.2) mg/dL Magnesium 1.7 (1.6-2.3) mg/dL Total Bilirubin 0.5 (0.2-1.3) mg/dL AST 24 (14-36) IU/L ALT 17 (<35) IU/L Alkaline Phosphatase 88 (38-126) U/L Total Creatine Kinase 55 (30-135) U/L CK-MB (CK-2) TNP CK-MB (CK-2) Rel Index TNP Troponin I < 0.012 (0.01-0.034) ng/mL Total Protein 8.8 H (6.3-8.2) g/dL Albumin 4.6 (3.5-5.0) g/dL Globulin 4.2 H (1.7-4.1) g/dL Albumin/Globulin Ratio 1.1 (1.0-2.8) Lipase 122 (23-300) U/L Urine RBC None seen (0-5/HPF) Urine WBC 1-5/hpf (0-5/HPF) Ur Squamous Epith Cells 1-5 /hpf (0-5/HPF) Urine Bacteria None seen (None) Ur Culture Indicated? Cult not indicated SARS-CoV-2 (PCR) (Negative) Urine Dip Bedside Urine Glucose Negative Bedside Urine Bilirubin - Negative Bedside Urine Ketone - Negative Urine Specific [place] 1.010 Bedside Urine Occult Blood - Negative Bedside Urine pH 6.5 Bedside Urine Protein +/- 15 Bedside Urine Urobilinogen - Negative Bedside Urine Nitrite - Negative Bedside Urine Leukocytes - Negative Esterase Imaging Data Chest x-ray: Radiologist's Impresson: PROCEDURE:? XR CHEST 1V ? INDICATIONS:? chest pain ? TECHNIQUE:? One view of the chest was acquired.? ? COMPARISON:? [facility], , XR CHEST 1V, 06/28/2022, 3:26. ? FINDINGS:? ? Surgical changes and devices:? Left chest Port-A-Cath.? Apparent addition of a midline generator device. ? Lungs and pleura:? Lungs are clear.? No pleural effusions or pneumothorax.? ? Mediastinum:? Mediastinal contours appear normal.? Heart size is normal.? ? Bones and chest wall:? No suspicious bony lesions.? Overlying soft tissues appear unremarkable.? ? IMPRESSION:? No evidence acute pulmonary process. ECG Data Attestation: I personally reviewed and interpreted this ECG as follows: Interpretation: Presentation EKG Sinus rhythm Ventricular rate 89 Normal QRS Normal QTC No ST T wave changes Repeat EKG Atrial fibrillation Ventricular rate [address] T wave changes Repeat EKG Sinus rhythm Frequent PVCs Normal QRS Normal QTC No ST T wave changes Repeat EKG Sinus rhythm Ventricular rate is 79 Normal QRS Normal QTC No ST T wave changes MDM Narrative Medical decision making narrative: Patient has had paroxysmal atrial fibrillation here in the emergency department. I did discuss the case with Dr. Kinney who is the on-call job service specialist for the patient's primary doctor. He was able to look up in it appears that she does have a history of atrial fibrillation. According to his records the patient should have been on 6.25 mg of carvedilol. Patient thinks that she is potential and 25 mg. Upon further discussion she now thinks that she takes the 12.5 mg and cuts them in half. She is not on any other antiarrhythmic. Not on anticoagulation. Takes Brilinta. Their recommendation was to increase her carvedilol to 25 mg 2 times a day however this was when the patient was hypertensive. Upon my re-evaluation when the patient was in sinus rhythm her blood pressure was in the 120s systolic. I advised the patient that she takes 12.5 mg twice a day. She will contact her primary doctor for follow-up. She was given return precautions. She expressed understanding and agreement. Discharge Plan Departure Patient Disposition: Home Clinical Impression: Atrial fibrillation Instructions: DI for Atrial Fibrillation Activity Restrictions/Additional Instructions: After discussion with your job service specialist they would like you to increase your carvedilol/Coreg to 12.5 mg twice a day. The rest of your medications will stay the same. Also recommend that you contact your job service specialist for follow-up. Return to the emergency department for new symptoms like we discussed. Prescriptions: No Action aspirin 81 mg Tablet,Chewable 81 mg PO DAILY Coreg 12.5 mg 12.5 mg PO DAILY Crestor 40 mg 40 mg PO DAILY ergocalciferol (vitamin D2) 2,000 Units 2,000 units PO DAILY Demadex 10 mg 10 mg PO DAILY Brilinta 90 mg tablet 90 mg PO DAILY carvedilol 12.5 mg tablet 12.5 mg PO ONCE HS Edarbi 80 mg tablet 80 mg PO DAILY Referrals: Elena Huerta MD [Primary Care Provider] - Stand Alone Forms: Patient Portal/API
[2022-07-29 10:49] LABS: PTT Partial Thromboplastin Tim 33 SECONDS (26-36)
[2022-07-29 10:52] LABS: Alanine Aminotransferase 17 IU/L (<35); Albumin 4.6 g/dL (3.5-5.0); Albumin Globulin Ratio 1.1 (1.0-2.8); Alkaline Phosphatase 88 U/L (38-126); Aspartate Aminotransferase 24 IU/L (14-36); BUN Creatinine Ratio 15.8 (6-22); Bilirubin Total 0.5 mg/dL (0.2-1.3); Blood Urea Nitrogen 18 mg/dL (7-17); Calcium 9.6 mg/dL (8.4-10.2); Carbon Dioxide 25 mmol/L (22-32); Chloride 104 mmol/L (98-107); Creatine Kinase 55 U/L (30-135); Estimated Glomerular Filt Rate 48 mL/min (>60); Globulin 4.2 g/dL (1.7-4.1); Glucose 111 mg/dL (80-110); HEMOLYSIS < 15 (0-50); Lipase 122 U/L (23-300); Magnesium 1.7 mg/dL (1.6-2.3); Potassium 4.1 mmol/L (3.4-5.1); Sodium 140 mmol/L (137-145); Total Protein 8.8 g/dL (6.3-8.2)
[2022-07-29 10:52] LABS: COVID19 -Nasal RAPID Negative (Negative)
[2022-07-29 11:03] LABS: Troponin I < 0.012 ng/mL (0.01-0.034)
[2022-07-29 11:53] LABS: Bacteria Urine None Seen; Culture Indicated Urine Cult Not Indicated; RBC Urine None Seen (0-5/HPF); Squamous Epithelial Cell Urine 1-5 /HPF (0-5/HPF); WBC Urine 1-5/HPF (0-5/HPF)
== END 2022-07-29 12:15 | disposition home or self-care (01) ==
PROVIDERS: Emergency Provider Emergency Medicine; PCP Obstetrics & Gynecology Gynecologic Oncology
DX: I48.0 Paroxysmal atrial fibrillation (principal); R07.9 Chest pain, unspecified; I10 Essential (primary) hypertension; Z79.899 Other long term (current) drug therapy; Z20.822 Contact with and (suspected) exposure to COVID-19
CPT/HCPCS: 36415; 71045; 80053; 81003; 81015; 82550; 83690; 83735; 84484; 85025; 85610; 85730; 87635; 93005; 99284; C9803

== ENCOUNTER 2022-11-17 21:24 | Inpatient (IN) | payer MEDICARE, OTHER, SELFPAY ==
[2022-11-17 21:32] VITALS: BP 107/46; PULSE 44; RESP 16; TEMP 36.4; O2SAT 94; BMI 29.4
[2022-11-17 22:08] VITALS: PULSE 42; RESP 20
[2022-11-17 22:18] LABS: Add Manual Diff / Slide Review NO; Basophils Absolute Auto 0 /uL (0-100); Basophils Percent Auto 0.5 % (0-2); Eosinophils Absolute Auto 0 /uL (0-450); Eosinophils Percent Auto 0.3 % (2-4); Hematocrit 28.1 % (36-46); Hemoglobin 9.6 g/dL (12.0-16.0); Lymphocytes Absolute Auto 900 /uL (1100-4500); Lymphocytes Percent Auto 20.8 % (25-40); Mean Corpuscular Hemoglobin 33.4 PG (26-34); Mean Corpuscular Volume 98.2 fL (80-100); Monocytes Absolute Auto 100 /uL (0-900); Monocytes Percent Auto 2.7 % (3-14); Neutrophils Absolute Auto 3300 /uL (1500-7000); Neutrophils Percent Auto 75.7 % (50-75); Platelet Count 123 X10^3/uL (150-400); Red Blood Cell Count 2.87 X10^6/uL (4.0-5.2); Red Cell Distribution Width 16.8 % (11.6-14.8); White Blood Cell Count 4.4 X10^3/uL (4.5-11.0)
[2022-11-17 22:28] LABS: BUN Creatinine Ratio 17.2 (6-22); Blood Urea Nitrogen 35 mg/dL (7-17); Calcium 8.8 mg/dL (8.4-10.2); Carbon Dioxide 20 mmol/L (22-32); Chloride 105 mmol/L (98-107); Estimated Glomerular Filt Rate 24 mL/min (>60); Glucose 133 mg/dL (80-110); HEMOLYSIS < 15 (0-50); Potassium 3.9 mmol/L (3.4-5.1); Sodium 137 mmol/L (137-145)
[2022-11-17 22:30] VITALS: BP 101/50; PULSE 41; RESP 20; O2SAT 90
[2022-11-17 22:39] LABS: Troponin I < 0.012 ng/mL (0.01-0.034)
[2022-11-17 23:00] VITALS: PULSE 41; RESP 19; O2SAT 92
[2022-11-17 23:01] VITALS: BP 100/49; PULSE 41; RESP 20; O2SAT 92
[2022-11-17 23:30] VITALS: BP 95/50; PULSE 41; RESP 19; O2SAT 92
--- NOTE | 2022-11-17 23:56 | ED.GENADULT ---
HPI - General Adult General Chief complaint: Dizziness Stated complaint: Low BP, Stomach pain Time Seen by Provider: 11/17/22 23:56 Source: patient and family Mode of arrival: Ambulatory History of Present Illness HPI narrative: 81-year-old woman with history of metastatic ovarian cancer, hypertension, chronic kidney disease, colovesical fistula with colostomy, chronic atrial fibrillation, chronic anemia with iron deficiency presents complaining of abdominal pain, nausea worse for a week with significantly in feet increased fatigue and decreased blood pressure today after breakfast. She recently started a new regimen to treat her metastatic ovarian cancer in his followed by Dr. Huerta at [facility]. Her regulatory compliance director is at [facility], nephrology at [facility]. She describes increasing lower extremity edema, no fevers, decreased appetite but unclear if she is been losing weight. No fevers coughs or chills. No chest pain or shortness of Breath Related Data Home Medications Medication Instructions Recorded Confirmed azilsartan medoxomil 80 mg tablet 80 mg PO DAILY 12/02/18 07/09/21 Coreg 12.5 mg PO DAILY 09/16/20 07/09/21 Crestor 40 mg PO DAILY 09/16/20 07/09/21 Demadex 10 mg PO DAILY 09/16/20 07/09/21 aspirin 81 mg chewable tablet 81 mg PO DAILY 09/16/20 07/09/21 ergocalciferol (vitamin D2) 2,000 units PO DAILY 09/16/20 07/09/21 carvedilol 12.5 mg tablet 12.5 mg PO ONCE HS 07/09/21 07/09/21 ticagrelor 90 mg tablet (Brilinta) 90 mg PO DAILY 07/09/21 07/09/21 Allergies Allergy/AdvReac Type Severity Reaction Status Date / Time No Known Drug Allergies Allergy Verified 07/29/22 10:21 Review of Systems Review of Systems Narrative: Pertinent positive and negative findings as per HPI Patient History Medical History Brain aneurysm Chronic kidney disease Colostomy in place GI bleeding Hyperlipidemia Hypertension Lower extremity edema Ovarian cancer Paroxysmal atrial fibrillation Surgical History H/O: hysterectomy Social History household members: spouse Smoking Status: Former smoker alcohol intake: current Smoking Status: Former smoker alcohol intake frequency: 0-2 drinks per day Substance Use Type: does not use Exam Initial Vital Signs Initial Vital Signs: Vital Signs Temperature 97.5 F L 11/17/22 21:32 Pulse Rate 44 L 11/17/22 21:32 Respiratory Rate 16 11/17/22 21:32 Blood Pressure 107/46 L 11/17/22 21:32 Pulse Oximetry 94 11/17/22 21:32 Oxygen Delivery Method Room Air 11/17/22 21:32 General: Chronically ill-appearing but in no acute distress. Able to cooperate with history. Well-nourished well-developed HEENT: Moist mucous membranes, normal sclera with reactive pupils, Neck: No JVD, supple Respiratory: Lungs are clear to auscultation, no wheezing no rales no rhonchi. Full and symmetrical air movement Cardiac: Bradycardic but otherwise Regular rate and rhythm no murmurs no bruits Abdomen: Soft, nontender, good bowel tones, no flank pain. Colostomy site is healthy appearing Skin: Pale but otherwise Warm and dry, no rashes Neurologic: Globally weak, Grossly neurologically intact with no obvious asymmetries or abnormalities Extremities: No trauma, well perfused Psych: Cooperative, appropriate insight and affect Course Orders Ordered: ED Orders 11/17/22 21:43 EKG-12 Lead Stat 11/17/22 21:58 Basic Metabolic Panel Stat Complete Blood Count AUTO DIFF Stat Troponin I Stat 11/18/22 00:35 CT abdomen pelvis w con Stat Hydromorphone HCl (Hydromorphone 0.5 Mg Inj) 0.5 mg IV Q15MIN PRN PRN Reason: Pain, Last Admin: 11/18/22 00:46 Dose: 0.5 mg Documented By: Sodium Chloride (Normal Saline 0.9%) 1,000 mls @ 500 mls/hr IV BOLUS ONE Stop: 11/18/22 02:34 Last Infusion: 11/18/22 02:03 Dose: 0 mls/hr Documented By: Admin: 11/18/22 00:42 Dose: 500 mls/hr Documented By: Discontinued Medications Acetaminophen (Acetaminophen 325 Mg Tablet) 325 mg PO NOW ONE Stop: 11/18/22 00:36 Last Admin: 11/18/22 00:42 Dose: 325 mg Documented By: Vital Signs Vital signs: Vital Signs - 8 hr 11/17/22 21:32 11/17/22 22:08 11/17/22 22:30 Temperature 97.5 F L Pulse Rate 44 L 42 L Respiratory Rate 16 20 Blood Pressure 107/46 L 101/50 L Pulse Oximetry 94 Oxygen Delivery Method Room Air Oxygen Flow Rate 11/17/22 22:30 11/17/22 23:00 11/17/22 23:01 Temperature Pulse Rate 41 L 41 L Respiratory Rate 20 19 Blood Pressure 100/49 L Pulse Oximetry 90 L 92 Oxygen Delivery Method Oxygen Flow Rate 11/17/22 23:01 11/17/22 23:30 11/17/22 23:30 Temperature Pulse Rate 41 L 41 L Respiratory Rate 20 19 Blood Pressure 95/50 L Pulse Oximetry 92 92 Oxygen Delivery Method Oxygen Flow Rate 11/18/22 00:00 11/18/22 00:00 11/18/22 00:30 Temperature Pulse Rate 40 L 41 L Respiratory Rate 19 20 Blood Pressure 97/52 L Pulse Oximetry 92 91 Oxygen Delivery Method Oxygen Flow Rate 11/18/22 00:31 11/18/22 00:31 11/18/22 01:14 Temperature Pulse Rate 40 L Respiratory Rate Blood Pressure 95/52 L Pulse Oximetry 90 L 92 Oxygen Delivery Method Nasal Cannula Oxygen Flow Rate 4 11/18/22 01:06 11/18/22 01:30 11/18/22 01:31 Temperature Pulse Rate 41 L 36 L 36 L Respiratory Rate 15 16 Blood Pressure Pulse Oximetry 84 L 92 93 Oxygen Delivery Method Room Air Oxygen Flow Rate 11/18/22 02:00 11/18/22 02:00 Temperature Pulse Rate 37 L Respiratory Rate 19 Blood Pressure 97/54 L Pulse Oximetry 90 L Oxygen Delivery Method Oxygen Flow Rate 4 Medical Decision Making Lab Data 11/17/22 21:58 11/17/22 21:58 Labs: Lab Results 11/17/22 11/17/22 Range/Units 21:58 21:58 WBC 4.4 L (4.5-11.0) X10^3/uL RBC 2.87 L (4.0-5.2) X10^6/uL Hgb 9.6 L (12.0-16.0) g/dL Hct 28.1 L (36-46) % MCV 98.2 (80-100) fL MCH 33.4 (26-34) PG MCHC 34.0 (30-36) % RDW 16.8 H (11.6-14.8) % Plt Count 123 L (150-400) X10^3/uL Neut % (Auto) 75.7 H (50-75) % Lymph % (Auto) 20.8 L (25-40) % [place] % (Auto) 2.7 L (3-14) % Eos % (Auto) 0.3 L (2-4) % Baso % (Auto) 0.5 (0-2) % Neut # (Auto) 3300 (2221-0922) /uL Lymph # (Auto) 900 L (2967-7966) /uL [place] # (Auto) 100 (0-900) /uL Eos # (Auto) 0 (0-450) /uL Baso # (Auto) 0 (0-100) /uL Sodium 137 (137-145) mmol/L Potassium 3.9 (3.4-5.1) mmol/L Chloride 105 (98-107) mmol/L Carbon Dioxide 20 L (22-32) mmol/L BUN 35 H (7-17) mg/dL Creatinine 2.03 H (0.52-1.04) mg/dL Estimated GFR 24 L (>60) mL/min BUN/Creatinine Ratio 17.2 (6-22) Glucose 133 H (80-110) mg/dL Calcium 8.8 (8.4-10.2) mg/dL Troponin I < 0.012 (0.01-0.034) ng/mL MDM Narrative Medical decision making narrative: CC: Fatigue, acute finding uncertain prognosis Complicating co-morbidities: Metastatic ovarian cancer, paroxysmal atrial fibrillation with multiple rate control medications, chronic kidney disease Data collected from: patient, Medical records reviewed: Nephrology notes from [facility], ER notes from [facility] and GI notes from [facility] are all reviewed. Differential considered: Third-degree heart block, congestive heart failure, renal failure, iatrogenic bradycardia, metastatic disease Exam documented above, pertinent findings include: Fatigued, no signs of significant heart failure but significant bradycardia without chest pain or dyspnea. Lab Test results independently reviewed as above. Pertinent findings: CBC shows pancytopenia with white count low at 4.4 anemia worse at 9.6 and 28.1, platelets low at 123 Chemistries are notable for increase in creatinine from 1.1 up to 2.3. Remainder of chemistries are fairly reassuring. Troponin is undetectable Independently reviewed EKG sinus bradycardia at a rate of 42 no acute ischemia Imaging studies independently reviewed: CT scan of the chest abdomen and pelvis done on August 19 at [facility] shows interval increase in size and number of pleural plaques, new bilateral Audra pulmonary Inman nodules suggesting interval worsening of metastatic disease. Worsening peritoneal carcinomatosis, retropharyngeal nodes consistent with worsening metastatic disease, worsening bilateral hydronephrosis likely secondary to retroperitoneal infiltrative process, new anterior compression fracture T12. Consultations: Care is reviewed with hospitalist service and patient will be admitted Treatments: Small fluid bolus, all hypertensive and rate slowing medications are held End of life discussion, patient and her are fairly realistic about her cancer and its progression. They recognize that all treatments right now are focused on palliative care and extending her meaningful and useful life. She does want to continue with aggressive treatment but also requests that she be DNR DNI. Discussion: 81-year-old woman with metastatic ovarian cancer. She is presenting with increasing weakness and lower extremity edema. She has worsening of her acute kidney failure, significant bradycardia presumably from her multiple rate slowing medications. Similarly has relative hypotension again presume this is related to blood pressure medications. CT scan of her abdomen was repeated. It was compared to that from well over a year ago with significant progression and carcinomatosis. It was not compared to most recent CT scan done in July. That CT scan has many similar findings in the question is as she and her carcinomatosis progressed from that. We will need to review with Radiology during the day and asked him to directly compare the 2. In the meantime will be admitted to the hospitalist Service, pain medication as needed, have recommended simply holding all other medications and seeing how her body responds. Once her heart rate increases hopefully she will better perfuse her kidneys and have a bit of improvement overall in symptoms. Given her carcinomatosis and degree of metastatic disease I do not think that she is going to be a pacemaker candidate. All of this is reviewed with patient and her , questions are answered and she is safe for transfer to the floor Discharge Plan Departure Patient Disposition: Admitted As Inpatient Clinical Impression: Bradycardia, severe sinus, Paroxysmal atrial fibrillation, Disseminated ovarian cancer, Abdominal carcinomatosis, Acute kidney injury Prescriptions: No Action aspirin 81 mg Tablet,Chewable 81 mg PO DAILY Coreg 12.5 mg 12.5 mg PO DAILY Crestor 40 mg 40 mg PO DAILY ergocalciferol (vitamin D2) 2,000 Units 2,000 units PO DAILY Demadex 10 mg 10 mg PO DAILY Brilinta 90 mg tablet 90 mg PO DAILY carvedilol 12.5 mg tablet 12.5 mg PO ONCE HS Edarbi 80 mg tablet 80 mg PO DAILY Referrals: Elena Huerta MD [Primary Care Provider] -
[2022-11-18] VITALS (23 sets, daily range): BP systolic 95–130; BP diastolic 35–55; PULSE 36–67; RESP 14–20; TEMP 35.8–37.2; O2SAT 84–97
--- NOTE | 2022-11-18 00:35 | DI.CT.S_ITS ---
PROCEDURE: CT ABDOMEN PELVIS W CON INDICATIONS: abdominal pain, compare to scan august 22 at [facility] TECHNIQUE: After the administration of IV contrast, axial sections were acquired from the lung bases to the pubic symphysis. Coronal and sagittal reformats were performed. For radiation dose reduction, the following was used: automated exposure control, adjustment of mA and/or kV according to patient size. COMPARISON: [facility], CT, CT ABDOMEN PELVIS W CON, 09/16/2020, 12:24. FINDINGS: Image quality: There is metallic streak artifact from patient's right hip prosthesis limiting evaluation. Lung bases: There are bilateral pleural effusions, moderate on the right and small on the left, with associated compressive atelectasis. Heart: Heart is normal in size. There are few partially calcified mediastinal lymph nodes. The the ABDOMEN: Liver: The liver is nodular in contour compatible with cirrhosis. There is also diffuse nodularity along the hepatic capsule suggestive of peritoneal implants. The [place] parenchyma demonstrates heterogeneous enhancement. There is a small oval hypodense lesion measuring up to 0.9 cm within segment 4B of the left hepatic lobe along the gallbladder fossa. Periportal edema is noted. Gallbladder: There are multiple gallstones within the gallbladder again noted. Nonspecific gallbladder wall thickening is demonstrated. Biliary ducts: No biliary ductal dilatation. Pancreas: Unremarkable. Spleen: Normal in size. Adrenal Glands: No adrenal nodules. Kidneys and Ureters: No hydronephrosis. Stomach and Bowel: There are postsurgical changes redemonstrated consistent with a left lower quadrant diverting colostomy. Stomach, small bowel loops, and colon are normal in caliber. There is a partially calcified the masslike soft tissue thickening at the rectal stump. Peritoneum: There is minimal intraperitoneal free fluid. There is increase in size of lobulated partially calcified mass lesions in the left paracolic gutter measuring 3.8 x 2.8 cm on series 2, image 49 and 3.1 x 2.7 cm on series 2, image 52. Multiple small peritoneal implants are also demonstrated within the abdomen including within the left paracolic gutter, along the hepatic capsule, and within the pelvis. No free air. Ventral Wall: No hernia. There are subcutaneous soft tissue nodules within the ventral abdominal wall which appear increased in size including a right paracentral nodule on series 2, image 72 measuring up to 1.7 x 0.7 cm. Abdominal Nodes: No retroperitoneal or mesenteric adenopathy by size criteria. Vessels: Aorta and inferior vena cava are normal in size. PELVIS: Pelvic Organs: The uterus is not well visualized and is likely surgically absent.. Bladder: Unremarkable. Pelvic Nodes: No enlarged lymph nodes. Miscellaneous: No inguinal hernias are seen. Bones: There is a mild superior endplate compression deformity of the T12 vertebral body of indeterminate acuity but new compared to the prior CT. No retropulsed fragments in the spinal canal. Visualized osseous structures demonstrate no suspicious focal lesions. IMPRESSION: 1. Partially calcified lobulated soft tissue masses in the left paracolic gutter, diffuse small peritoneal soft tissue implants, and small amount of ascites. These include partially calcified masslike thickening at the rectal stump. The constellation of findings are compatible with peritoneal carcinomatosis. 2. Multiple partially calcified subcutaneous soft tissue nodules within the ventral abdominal wall compatible with metastatic disease. 3. Heterogeneous enhancement of the liver with a nonspecific hypodense lesion along the gallbladder fossa. Metastatic involvement cannot be excluded. Consider further evaluation with a liver protocol MRI when clinically feasible. 4. Partially calcified enlarged lymph nodes within the visualized mediastinal and right costophrenic angle anteriorly compatible with metastatic disease. 5. Bilateral pleural effusions, moderate on the right and small on the left, with associated compressive atelectasis. 6. Mild superior endplate compression deformity of the T12 vertebral body of indeterminate acuity but new compared to the prior CT. Dictated by: Hubert Caldwell M.D. on 11/18/2022 at 1:44 Approved by: Hubert Caldwell M.D. on 11/18/2022 at 2:01
[2022-11-18] MEDS: SODIUM CHLORIDE 0.9% 1,000 ML 500 ML IV (00:42)
[2022-11-18] MEDS: ACETAMINOPHEN 325 MG TABLET PO (00:42)
[2022-11-18] MEDS: HYDROMORPHONE 0.5 MG INJ IV (00:46)
--- NOTE | 2022-11-18 03:16 | P.HP_ITS ---
History of Present Illness History of Present Illness Date Patient Seen: 11/18/22 Time Patient Seen: 03:16 Chief complaint: Hypotension, bradycardia, ABD pain,met ovarian CA Narrative: Svetlana Abarca is an 81-year-old female with history of hypertension, HL D, chronic kidney disease, colovesical fistula with colostomy, chronic atrial fibrillation, chronic anemia with iron deficiency, history of brain aneurysm, history of GI bleed, bilateral lower extremity edema, and current metastatic ovarian cancer on oral chemotherapy who presented complaining of abdominal pain, worsening nausea, increased fatigue, and decreased blood pressure over the past week.? She recently started a new regimen to treat her metastatic ovarian cancer in his followed by Dr. Huerta at?[facility].? Cardiology Dr. Jayden Real, nephrology Dr. Jon rodriguez.? In ED patient was found to be hypotensive 107/46, bradycardic HR in the 36-41 (44), 16, 89% on room air. EKG sinus Juaquin with a rate of 42, low-voltage QRS, inferior infarct, unchanged from EKG on 07/29/2022 with the exception of bradycardia. She describes increasing lower extremity edema, no fevers, decreased appetite but unclear if she is been losing weight, significant productive cough.? Patient appears slightly confused has difficulty answering questions, poor recall, she appears extremely tired and fatigued and has been up all night, as it is 5am. No fevers coughs or chills.? No chest pain or shortness of Breath. Patient denies headache, changes in vision, difficulty swallowing, speech impairment, numbness, tingling, difficulty with ambulation, recent falls, head injury, LOC, body aches, recent exposure to illness, vomiting, urinary incontinence/retention, dysuria, frequency, urgency, hematuria, bowel changes, constipation, incontinence, melena, rashes, recent injury, or trauma. On admit 97.5, 95/52, 41, RR 20, O2 saturation 92% on 4 L. labs from 07/29/2022 H&H 11/34, platelets 230, BUN 18, creatinine 1.14, GFR 48. Today WBC 4.4, H&H /28, platelets 123, BUN 35, creatinine 2.03, GFR 24, glucose 133, troponin is negative. Patient had a recent abdominal CT exam July 2022 at [facility], Dr. Calero requested the comparison be to the [facility] 07/2022 scan. Radiology did not but rather compared it to 09/16/[address]: Partially calcified lobulated soft tissue masses in the left paracolic gutter, diffuse small peritoneal soft tissue implants, and small amount of ascites.? These include partially calcified masslike thickening at the rectal stump.? Multiple partially calcified subcutaneous soft tissue nodules within the ventral abdominal wall. Heterogeneous enhancement of the liver with a nonspecific hypodense lesion along the gallbladder fossa.?Partially calcified enlarged lymph nodes within the visualized mediastinal and right costophrenic angle anteriorly. Bilateral pleural effusions, moderate on the right and small on the left. and Mild superior endplate compression deformity of the T12 vertebral body. Admitted for acute abdominal pain, bradycardia, hypotension, pancytopenia, SHANNAN, and metastatic ovarian cancer. [facility] Medical History Brain aneurysm Chronic kidney disease Colostomy in place GI bleeding Hyperlipidemia Hypertension Lower extremity edema Ovarian cancer Paroxysmal atrial fibrillation Surgical History (Updated 11/18/22 @ 03:33 by TAE Rubio-ANTHONY) H/O: hysterectomy History of colostomy History of gastric surgery Family History (Updated 11/18/22 @ 03:34 by ROSA Rubio) Father No problems noted. Mother No problems noted. Social History household members: spouse Smoking Status: Former smoker alcohol intake: current Meds Home Medications and Allergies Home Medications Medication Instructions Recorded Confirmed Type azilsartan medoxomil 80 mg tablet 80 mg PO DAILY 12/02/18 07/09/21 History Coreg 12.5 mg PO DAILY 09/16/20 07/09/21 History Crestor 40 mg PO DAILY 09/16/20 07/09/21 History Demadex 10 mg PO DAILY 09/16/20 07/09/21 History aspirin 81 mg chewable tablet 81 mg PO DAILY 09/16/20 07/09/21 History ergocalciferol (vitamin D2) 2,000 units PO DAILY 09/16/20 07/09/21 History carvedilol 12.5 mg tablet 12.5 mg PO ONCE HS 07/09/21 07/09/21 History ticagrelor 90 mg tablet (Brilinta) 90 mg PO DAILY 07/09/21 07/09/21 History Allergies Allergy/AdvReac Type Severity Reaction Status Date / Time No Known Drug Allergies Allergy Verified 07/29/22 10:21 Review of Systems Review of Systems Narrative: All 12 point systems reviewed with the patient and are negative except otherwise documented. Exam Vital Signs (past 8 hours): - 11/17/22 21:32 11/17/22 22:08 11/17/22 22:30 Temperature 97.5 F L Pulse Rate 44 L 42 L Respiratory Rate 16 20 Blood Pressure 107/46 L 101/50 L Pulse Oximetry 94 Oxygen Delivery Method Room Air Oxygen Flow Rate 11/17/22 22:30 11/17/22 23:00 11/17/22 23:01 Temperature Pulse Rate 41 L 41 L Respiratory Rate 20 19 Blood Pressure 100/49 L Pulse Oximetry 90 L 92 Oxygen Delivery Method Oxygen Flow Rate 11/17/22 23:01 11/17/22 23:30 11/17/22 23:30 Temperature Pulse Rate 41 L 41 L Respiratory Rate 20 19 Blood Pressure 95/50 L Pulse Oximetry 92 92 Oxygen Delivery Method Oxygen Flow Rate 11/18/22 00:00 11/18/22 00:00 11/18/22 00:30 Temperature Pulse Rate 40 L 41 L Respiratory Rate 19 20 Blood Pressure 97/52 L Pulse Oximetry 92 91 Oxygen Delivery Method Oxygen Flow Rate 11/18/22 00:31 11/18/22 00:31 11/18/22 01:14 Temperature Pulse Rate 40 L Respiratory Rate Blood Pressure 95/52 L Pulse Oximetry 90 L 92 Oxygen Delivery Method Nasal Cannula Oxygen Flow Rate 11/18/22 01:06 11/18/22 01:30 11/18/22 01:31 Temperature Pulse Rate 41 L 36 L 36 L Respiratory Rate 15 16 Blood Pressure Pulse Oximetry 84 L 92 93 Oxygen Delivery Method Room Air Oxygen Flow Rate 11/18/22 02:00 11/18/22 02:00 11/18/22 02:30 Temperature Pulse Rate 37 L 36 L Respiratory Rate 19 14 Blood Pressure 97/54 L Pulse Oximetry 90 L 92 Oxygen Delivery Method Oxygen Flow Rate 11/18/22 02:31 11/18/22 02:31 11/18/22 03:00 Temperature Pulse Rate 37 L Respiratory Rate 15 Blood Pressure 95/52 L 102/55 L Pulse Oximetry 92 Oxygen Delivery Method Nasal Cannula Oxygen Flow Rate 4 11/18/22 03:00 Temperature Pulse Rate 39 L Respiratory Rate 15 Blood Pressure Pulse Oximetry Oxygen Delivery Method Oxygen Flow Rate Oxygen Delivery Method Nasal Cannula Oxygen Flow Rate 4 Narrative Exam Narrative: General: Patient is a julian well-developed, well-nourished chronically ill- appearing elderly female, in no distress at this time. HEENT: Normocephalic, atraumatic, extraocular muscles intact, oral pharynx is clear and mucous membranes are moist. Neck is supple and symmetric, trachea is midline, no adenopathy, no thyroid enlargement, nontender, no masses palpated. Negative for JVD Chest: Port to left chest wall Normal AP diameter and contour without kyphoscoliosis, Equal chest rise without nasal flaring, retractions, tachypneic or labored breathing. Lungs: Auscultation of all lung ding are coarse without adventitious sounds, wheezes, rhonchi, or rales. Cardio: Bradycardic regular rate and rhythm without murmur, rubs, or gallops, no carotid bruit, no cardiac pulsations present. Abdomen: Colostomy bag left upper abd quad, Soft nontender, negative for organomegaly, or masses. Bowel sounds are present in all 4 quadrants without guarding or rebound, no CVA tenderness. Musculoskeletal: Muscle strength: Globally weak no deformity, crepitus, effusions, cyanosis, clubbing present. Trace bilateral lower ext edema. Full range of motion intact radial and pedal pulses are normal. Skin: Pale, Warm dry and intact without rashes, ulcerations or petechiae. Neuro: Alert and orientated x3, moves all extremities, sensation to touch intact, no gross deficits noted of cranial nerves. Psych: Patient has a well-kept appearance, appropriate affect, some very mild confusion, poor recall or could simply be severe fatigue after being up all night. Objective Labs 11/17/22 21:58 11/17/22 21:58 Labs: Laboratory Results - last 24 hr 11/17/22 11/17/22 21:58 21:58 WBC 4.4 L RBC 2.87 L Hgb 9.6 L Hct 28.1 L MCV 98.2 MCH 33.4 MCHC 34.0 RDW 16.8 H Plt Count 123 L Neut % (Auto) 75.7 H Lymph % (Auto) 20.8 L [place] % (Auto) 2.7 L Eos % (Auto) 0.3 L Baso % (Auto) 0.5 Neut # (Auto) 3300 Lymph # (Auto) 900 L [place] # (Auto) 100 Eos # (Auto) 0 Baso # (Auto) 0 Sodium 137 Potassium 3.9 Chloride 105 Carbon Dioxide 20 L BUN 35 H Creatinine 2.03 H Estimated GFR 24 L BUN/Creatinine Ratio 17.2 Glucose 133 H Calcium 8.8 Troponin I < 0.012 Assessment & Plan Assessment & Plan narrative: Svetlana Abarca is an 81-year-old female with history of hypertension, chronic kidney disease, colovesical fistula with colostomy, chronic atrial fibrillation, chronic anemia with iron deficiency, and current metastatic ovarian cancer on oral chemotherapy who presented complaining of abdominal pain, worsening nausea, increased fatigue, and decreased blood pressure over the past week.? She recently started a new oral chemotherapy regimen for metastatic ova raymundo cancer. Patient's will bring back her medication list later today for accurate reconciliation. Admitted for acute abdominal pain, bradycardia, hypotension, pancytopenia, SHANNAN, and metastatic ovarian cancer. Will hold all patient's medications at this time, have radiology do a comparison of abdominal pelvis CT imaging [facility] imaging to determine the progression of the metastatic disease. Gentle rehydration for SHANNAN. Will likely need consult with Oncology, Cardiology, and FINANCIAL AID MANAGER consult. Bradycardia, with hypotension, acute, present on admission * Likely secondary to advancing metastatic disease. * ED 107/46, bradycardic HR in the 36-41 (44), 16, 89% on room air. * EKG sinus Juaquin with a rate of 42, low-voltage QRS, inferior infarct, unchanged from EKG on 07/29/2022 with the exception of bradycardia. * metal flow coordinator Dr. Jayden Real * admit 97.5, 95/52, 41, RR 20, O2 saturation 92% on 4 L. * Holding all medications: metoprolol, diltiazem, Coreg, Azilsanter Medoxomil * Gentle rehydration, orthostatics Q 4 while awake only * On Tele Acute abdominal pain, likely secondary to metastatic ovarian cancer, acute on chronic, present on admission * Oncology Dr. Huerta at?[facility] * Holding Arimidex, Kisqali (started 16 days ago) * FINANCIAL AID MANAGER consult * Will request Dr. Davis to contact daytime radiologist and do comparison of July 2022 scan at [facility] to last night's imaging * Radiology did not compare to 07/20[facility] scan but rather compared it to 09/16/2020 [place] scan. * abdominal pelvis CT: Partially calcified lobulated soft tissue masses in the left paracolic gutter, diffuse small peritoneal soft tissue implants, and small amount of ascites.? These include partially calcified masslike thickening at the rectal stump.? Multiple partially calcified subcutaneous soft tissue nodules within the ventral abdominal wall. Heterogeneous enhancement of the liver with a nonspecific hypodense lesion along the gallbladder fossa.?Partially calcified enlarged lymph nodes within the visualized mediastinal and right costophrenic angle anteriorly. * Pain management antiemetics. SHANNAN, in the setting of CKD, with hyperlipidemia, acute on chronic, present on admission * 07/29/2022 BUN 18, creatinine 1.14, GFR 48. * Admit BUN 35, creatinine 2.03, GFR 24, glucose 133 * Nephrology Dr. Webb [facility] * Holding nephrotoxic medication * NS at 80cc/hr for gentle rehydration. * Trend renal function Pancytopenia, acute, likely secondary to metastatic ovarian cancer/oral chemotherapy, present on admit * 07/29/2022 H&H 11/34, platelets 230 * Today WBC 4.4, H&H 9/28, platelets 123 * Trend cbc * Monitor for bleeding Pleural effusion, bilateral, acute, present on admission * CT: Bilateral pleural effusions, moderate on the right and small on the left. * Monitor for respiratory distress/fluid overload T12 compression fracture, chronic, present on admission * Mild superior endplate compression deformity of the T12 vertebral body. Chronic Paroxysmal atrial fibrillation, chronic, present on admission * Holding Coreg, metoprolol, diltiazem Brillinta due to bradycardia, pancytopenia * [place] Dr. Huerta at [facility] Hypertension, essential, chronic, present on admission * Stopping Azilsarten Medoxomil & Demadex due to SHANNAN * Holding Coreg, diltiazem, metoprolol, due to hypotension due to severe bradycardia/Hypotension Code status: DNR DNI Surrogate decision maker: Spouse Job DVT/VTE prophylaxis: Holding due to pancytopenia, SCDs only Disposition: Patient admitted to acute care for evaluation of acute abd pain hypotension, bradycardia, SHANNAN in the setting of metastatic ovarian cancer, expected length of stay estimated to exceed 2 midnights. I have utilized all available immediate resources to obtain, update, or review the patient's current medications. I confirmed that the patient's advanced care plan is present, Code status is documented and/or surrogate decision maker is listed in the patient's medical record. I have personally reviewed patient's chart notes from PCP, specialists, diagnostic imaging, and laboratory results.
[2022-11-18 03:44] LABS: Magnesium 1.6 mg/dL (1.6-2.3)
[2022-11-18] MEDS: SODIUM CHLORIDE 0.9% 1,000 ML 60 ML IV ×2 (04:34→19:20)
[2022-11-18] MEDS: ACETAMINOPHEN 325 MG TABLET 650 MG PO ×4 (04:42→19:20)
--- NOTE | 2022-11-18 05:36 | PC.ADMIT ---
[facility] Admission Note: The patient,Svetlana Abarca,81 y/o, was given written information regarding hospital policies, unit procedures and contact persons. Patient's smoking status: Former smoker. Vital Signs - 8 hr 11/17/22 22:08 11/17/22 22:30 11/17/22 22:30 Pulse Rate 42 L 41 L Respiratory Rate 20 20 Blood Pressure 101/50 L Pulse Oximetry 90 L Oxygen Delivery Method Oxygen Flow Rate 11/17/22 23:00 11/17/22 23:01 11/17/22 23:01 Pulse Rate 41 L 41 L Respiratory Rate 19 20 Blood Pressure 100/49 L Pulse Oximetry 92 92 Oxygen Delivery Method Oxygen Flow Rate 11/17/22 23:30 11/17/22 23:30 11/18/22 00:00 Pulse Rate 41 L Respiratory Rate 19 Blood Pressure 95/50 L 97/52 L Pulse Oximetry 92 Oxygen Delivery Method Oxygen Flow Rate 11/18/22 00:00 11/18/22 00:30 11/18/22 00:31 Pulse Rate 40 L 41 L 40 L Respiratory Rate 19 20 Blood Pressure Pulse Oximetry 92 91 90 L Oxygen Delivery Method Oxygen Flow Rate 11/18/22 00:31 11/18/22 01:14 11/18/22 01:06 Pulse Rate 41 L Respiratory Rate Blood Pressure 95/52 L Pulse Oximetry 92 84 L Oxygen Delivery Method Nasal Cannula Room Air Oxygen Flow Rate 4 11/18/22 01:30 11/18/22 01:31 11/18/22 02:00 Pulse Rate 36 L 36 L Respiratory Rate 15 16 Blood Pressure 97/54 L Pulse Oximetry 92 93 Oxygen Delivery Method Oxygen Flow Rate 11/18/22 02:00 11/18/22 02:30 11/18/22 02:31 Pulse Rate 37 L 36 L 37 L Respiratory Rate 19 14 15 Blood Pressure Pulse Oximetry 90 L 92 92 Oxygen Delivery Method Nasal Cannula Oxygen Flow Rate 4 4 11/18/22 02:31 11/18/22 03:00 11/18/22 03:00 Pulse Rate 39 L Respiratory Rate 15 Blood Pressure 95/52 L 102/55 L Pulse Oximetry Oxygen Delivery Method Oxygen Flow Rate 11/18/22 03:30 11/18/22 03:30 11/18/22 04:00 Pulse Rate 38 L 42 L Respiratory Rate 14 15 Blood Pressure 100/54 L Pulse Oximetry 91 92 Oxygen Delivery Method Oxygen Flow Rate 11/18/22 04:01 11/18/22 04:01 11/18/22 05:25 Pulse Rate 42 L Respiratory Rate 15 Blood Pressure 105/53 L Pulse Oximetry 92 Oxygen Delivery Method Nasal Cannula Nasal Cannula Oxygen Flow Rate 4 Patient admitted to room 220 from ER per stretcher at 0415. Is alert and oriented except incorrect on age and day of month. Is slow to respond and has some difficulty with finding correct words. Breath sounds CTA with sat of 92% on oxygen at 4L/min; normally uses CPAP at night. HRR but bradycardic at 48bpm; telemetry reading was SB w/prolonged QT and occasional PVC's. Endorses slight nausea but declines antiemetic. BT present and has colostomy which she states she emptied prior to coming to ER. Denies dysuria, frequency or urgency with urination. Is able to turn herself in bed but is globally weak. Was up to BSC w/walker and SBA. Has trace edema bilateral LE. Complained of 7/10 headache and was medicated with tylenol. Coccyx/buttocks lightly red but blanchable. Bilateral calf SCD's applied. Fall risk score is high and bed alarm is activated. Oriented to call light and bed controls.
[2022-11-18 06:10] LABS: Add Manual Diff / Slide Review NO; Basophils Absolute Auto 0 /uL (0-100); Basophils Percent Auto 0.2 % (0-2); Eosinophils Absolute Auto 0 /uL (0-450); Hematocrit 25.2 % (36-46); Hemoglobin 8.5 g/dL (12.0-16.0); Lymphocytes Absolute Auto 700 /uL (1100-4500); Lymphocytes Percent Auto 19.8 % (25-40); Mean Corpuscular HGB Conc 33.8 % (30-36); Mean Corpuscular Hemoglobin 32.7 PG (26-34); Mean Corpuscular Volume 96.9 fL (80-100); Monocytes Absolute Auto 100 /uL (0-900); Monocytes Percent Auto 2.8 % (3-14); Neutrophils Absolute Auto 2700 /uL (1500-7000); Neutrophils Percent Auto 77.2 % (50-75); Platelet Count 103 X10^3/uL (150-400); Red Cell Distribution Width 16.4 % (11.6-14.8); White Blood Cell Count 3.5 X10^3/uL (4.5-11.0)
[2022-11-18 06:17] LABS: INR 1.1 (0.9-1.3); Prothrombin Time 12.1 SECONDS (10.1-12.7)
[2022-11-18 06:19] LABS: PTT Partial Thromboplastin Tim 33 SECONDS (26-36)
[2022-11-18 06:21] LABS: Alanine Aminotransferase 13 IU/L (<35); Albumin 3.5 g/dL (3.5-5.0); Albumin Globulin Ratio 1.1 (1.0-2.8); Alkaline Phosphatase 63 U/L (38-126); Aspartate Aminotransferase 20 IU/L (14-36); BUN Creatinine Ratio 17.3 (6-22); Bilirubin Total 0.4 mg/dL (0.2-1.3); Blood Urea Nitrogen 37 mg/dL (7-17); Calcium 8.1 mg/dL (8.4-10.2); Carbon Dioxide 21 mmol/L (22-32); Chloride 105 mmol/L (98-107); Estimated Glomerular Filt Rate 23 mL/min (>60); Globulin 3.3 g/dL (1.7-4.1); Glucose 132 mg/dL (80-110); HEMOLYSIS < 15 (0-50); Potassium 3.6 mmol/L (3.4-5.1); Sodium 135 mmol/L (137-145); Total Protein 6.8 g/dL (6.3-8.2)
[2022-11-18 06:30] LABS: NT-proBNP (BNP-Adult 18+) 1730 pg/mL (<450)
[2022-11-18] MEDS: ONDANSETRON 4 MG/2 ML INJ IV (08:33)
--- NOTE | 2022-11-18 11:44 | PC.NURSE ---
Patient up to the bathroom this am with one person assist and walker. She is working with PT/OT at this time. Family and children are very active in patients care. Given tylenol earlier and helpful. Patient didnt eat well at breakfast, she ate bites and drank about 40cc of her coffee. brought patients chemo medication in. Will have pharmacy I.D. this.
--- NOTE | 2022-11-18 11:48 | OT.IP.EVAL ---
Current Diagnoses Bradycardia, unspecified (11/18/22) Past Medical History (Last Review[facility] 11/18/22 @ 03:33 [facility] Brain aneurysm Chronic kidney disease Colostomy in place GI bleeding Hyperlipidemia Hypertension Lower extremity edema Ovarian cancer Paroxysmal atrial fibrillation Surgical History (Last Updated 11/18/22 @ 03:33 [facility] H/O: hysterectomy History of colostomy History of gastric surgery Occupational Therapy Inpatient Evaluation/Re-Eval M1 PT/OT-IP Prior Functional Status Start: 11/18/22 09:01 Freq: NEEDED Status: Active Protocol: Document 11/18/22 13:27 CGR (Rec: 11/18/22 13:47 CGR [id number]) Medical Review Prior Functional Status Medical History Reviewed Yes Communication Pt is an effective verbal communicator. Mobility and Gait Pt was IND in all mobility prior to ~3 weeks ago. Family states that they have seen a slow decline in her abilities over the last year but pt was ambulating IND recently. Activities of Daily Living and IADL's Pt was IND in all ADLs prior to ~3 weeks ago. Pt states that things have been progressively more difficult. Social History Household Members spouse Living Arrangements House Number of Floors (Floors) One Floor Number of Stairs To Enter/Railing? ramp to enter Home Environment High Toilet,Walk in Shower Home Equipment Front Wheel Walker,Four Wheel Walker,Quad Cane,Straight Cane ,Bedside Commode,Shower Seat with Backrest,Shower Seat without Backrest,Hand Held Shower,Grab Bars In Shower Employment Status Retired Additional Social History Comment Pt has a transport chair. M2 OT-IP Current Condition Start: 11/18/22 13:26 Freq: Status: Active Protocol: Document 11/18/22 13:27 CGR (Rec: 11/18/22 13:47 CGR [id number]) Occupational Therapy Current Condition Current Condition Evaluation Date 11/18/22 Treatment Diagnosis nausea, fatigue, low BP, bradycardia, started new chemo Diagnosis Onset Date 11/18/22 M3 OT- IP Subjective and Pain Start: 11/18/22 13:26 Freq: Status: Active Protocol: Document 11/18/22 13:27 CGR (Rec: 11/18/22 13:47 CGR [id number]) OT- Subjective Occupational Therapy Visit Type Type Initial Evaluation Visit Start Time 11:08 Visit Stop Time 11:48 Total Visit Minutes 40 OT Pain Assessment Pain When Pain Assessed At Rest Pain Present Pain Present Pain Reported Location Abdomen Intensity 3 Scale Used Numeric (0 - 10) Management Techniques Modification of Treatment,Re- positioning Bilateral Foot Intensity 3 Scale Used Numeric (0 - 10) Management Techniques Distraction,Modification of Treatment,Re-positioning M4 OT- IP ADL's Start: 11/18/22 13:26 Freq: Status: Active Protocol: Document 11/18/22 13:27 CGR (Rec: 11/18/22 13:47 CGR [id number]) OT [id number]-Endajdd Comments OT Self-Feeding Comments not meal time OT ADL-Grooming Comments OT Grooming Comments not performed OT ADL-Oral Care Comments Oral Care Comments not performed OT ADL-Dressing General Eval Lower Body Dressing Ability Minimal Assistance Areas Needing Assistance Underpants/Brief Comments OT Dressing Comments Pt needed extra time and assist with getting her second foot into the underwear OT ADL-Toileting General Evaluation Toileting Ability Standby Assistance Devices Toileting Assistive Devices Commode Comments OT Toileting Comments Pt asked for toielt paper when toielt paper was being held out to her. She needed a verbal cue to take the toielt paper. OT ADL-Bathing Comments OT Bathing Comments not performed M5 OT- IP IADL's Start: 11/18/22 13:26 Freq: Status: Active Protocol: Document 11/18/22 13:27 CGR (Rec: 11/18/22 13:47 CGR [id number]) OT-Instrumental Activities of Daily Living Deficits IADL Deficits Identified Deficits Home Safety Awareness Awareness of Need for Assistance at Home Decreased Awareness Ability to Problem Solve Emergency Unable to Problem Solve Situations Medication Management Medication Management Caregiver Administers Medication Management Comments Per family conversation while OT present, some of the medications that the patient is taking state on the med rec to have stopped. Pt's stated I must have missed that. Money Management Money Management Caregiver Provides Assistance Meal Preparation Meal Preparation Caregiver Provides Assist Square Dance Caller Square Dance Caller Caregiver Provides Assist Driving Driving Concerns Identified Regarding Safety Driving Comments Pt states that she drives at baseline. M6 OT- IP Functional Cognition Start: 11/18/22 13:26 Freq: Status: Active Protocol: Document 11/18/22 13:27 CGR (Rec: 11/18/22 13:47 CGR [id number]) Cognitive Factors Limiting Selfcare Function Cognitive Ability Level of Alertness Alert,Confusional State Patient Orientation Name,Month,Year,Place, Situation Attention Span Ability Capable of Focused Attention, Unable to Sustain Attention Ability to Follow Commands Able to Follow One Step Commands with Increased Time, Able to Follow One Step Commands with Repetition Cognitive Comments Cognitive Assessment Comments Pt would benefit from a formal cognitive assessment. OT- Vision and Hearing OT- Hearing Assessment OT- Hearing Assessment WFL OT- Vision Assessment Vision Assessment Comments Pt had difficulty following commands for simple eye testing. Pt states she has bifocals but doesn't always wear them. M7 OT- IP Mobility and Balance Start: 11/18/22 13:26 Freq: Status: Active Protocol: Document 11/18/22 13:27 CGR (Rec: 11/18/22 13:47 CGR [id number]) OT- Bed Mobility Assessment Supine to Sit Supine to Sit Assist Standby Assistance Scooting Scooting to Edge of Bed Standby Assistance OT-Transfer Assessment Sit to and From Stand Sit to and from Stand Standby Assistance Transfers Transfer Ability Minimal Assistance Technique Transfer Destination Bed,Bedside Commode,Chair Transfer Technique Stand Step Pivot Devices Transfer Assistive Devices Gait Belt,Front Wheeled Walker Comments Mobility Comments Pt physically moves herself without physical assist, however, pt needed assist with moving the walker, motor planning and max vc for all transfers. OT- Balance Assessment Sitting Balance and Reactions Static Sitting Balance Ability Good Dynamic Sitting Balance Ability Good M8 OT- IP Objective Assessments Start: 11/18/22 13:26 Freq: Status: Active Protocol: Document 11/18/22 13:27 CGR (Rec: 11/18/22 13:47 CGR [id number]) OT Gross Range of Motion Upper Extremity Range of Motion Assessment Within Functional Limits OT Strength Upper Extremity Strength Assessment Within Functional Limits Comments Strength Comments 5/5 throughout, however, pt needed assist with positioning for MMT, she was unable to position herself given a visual. OT- Coordination Assessment Upper Extremity Finger to Nose Test Within Functional Limits Finger Tapping Test Within Functional Limits OT-Muscle Tone Assessment Muscle Tone WNL Yes OT Sensation Assessment Edema Edema Absent M9 OT- IP Assessment and Plan Start: 11/18/22 13:26 Freq: Status: Active Protocol: Document 11/18/22 13:27 CGR (Rec: 11/18/22 13:47 CGR [id number]) OT Summary Assessment and Plan Potential Rehabilitation Potential Fair Analytic Complexity at Evaluation Moderate Summary OT Impairments Pain,Balance,Functional Cognition,Functional Mobility, Grooming,Dressing,Toileting, Bathing,Toilet Transfers, Shower Transfers,Activity Tolerance Progress Towards Goals Slow Progress due to Medical Issues,Slow Progress due to Cognition Assessment Summary Pt presents as a low complexity evaluation s/p admit for nausea and fatigue. Pt presents with difficulty following simple commands and motor planning, however, she is very strong. Pt will benefit from formal cog testing, which will be done tomorrow if schedule permits. Pt is likely to benefit from home vs SNF. Goals Self-Feeding Goal Independent Grooming Goal Independent Dressing Goal Independent Toileting Goal Independent Bathing Goal Independent Toilet Transfer Goal Independent Shower Transfer Goal Independent Days to Meet Goals 10 Frequency of Treatment Frequency Of Treatment Once a Day Treatment Plan OT Treatment Plan ADL Training,Functional Cognition Training,Functional Mobility,Patient/Family Education,Discharge Planning Other Treatment Recommendations and Next cog assessment, shower Treatment Focus Discharge Recommendations OT Discharge Recommendations Home vs SNF Other Discharge Recommendations Pt is likely to benefit from a discharge home vs SNF Transportation Needs at Discharge Private Vehicle
--- NOTE | 2022-11-18 13:58 | PT-IP ANOTE ---
Received PT orders and completed chart review. OT worked with pt earlier. Met briefly with pt who declined mobility assessment this PM secondary to fatigue and anxiety. Will follow up at next service date.
--- NOTE | 2022-11-18 16:11 | CM.DANOTE ---
DCP: Patient is a 81yo Female here with bradycardia, ovarian cancer, abdominal carcinomatosis, acute kindey injury, and paroxysmal atrial fibrillation (Summary). Payer: Medicare and [employer] PCP: Elena Huerta (oncologist) Dr. Carpenter (meteorologist in charge) and Dr. Schwartz(?) (kidney) NEON LIGHT INSTALLER reviewed EMR. NEON LIGHT INSTALLER entered room and introduced self and role. Patient was accompanied by spouse, Job ([phone] or [phone]). Patient was alert but appeared confused with some details regarding her history. Primary information provided by spouse. Patient and spouse report patient lives at home with spouse and daughter lives next door. Patient appears to have many supports at home. Patient has a walker, wheelchair, cane, shower chair, and a ramp to get in to her house. All of her equipment she uses as needed. Occasionally, spouse helps her with tasks such as dressing. Spouse and other family are primary supports of transportation. Patient claims I drive' but spouse reports she has not driven since 2017. When asked if patient would be open to SNF, patient reported she would rather lie in a pile of muddy water than go someplace like that. [facility] and it was horrible. Patient and family are open to HH if determined medically necessary. Patient and spouse expressed verbal understanding that HH may not be deemed medically necessary. patient and spouse were unsure of d/c timeline at this time. Spouse reports to his understanding, they were waiting to work with PT/OT tomorrow for more information. Plan: d/c home when medically stable. Transport with in POV. further referrals pending provider recommendation. CM team will continue to follow with needs. SUMMER Judge Discharge Planning/Care Management Advanced directive, confirm from FAMILY Start: 11/18/22 04:36 Freq: Q24H Status: Active Protocol: Document 11/18/22 04:40 MW (Rec: 11/18/22 04:40 MW [id number]) Advance Directive, confirm on record Time 04:40 Person contacted pt family Copy received No CM Discharge Assessment Start: 11/18/22 16:02 Freq: Status: Active Protocol: Document 11/18/22 16:02 SL (Rec: 11/18/22 16:11 SL [id number]) Discharge Planning Assessment Assigned Materials Handler SUMMER Judge DPOA/Assigned Designee Name Job Maurice (spouse) Contact Information [phone] or [phone] Advance Directives? Yes Advance Directives on File No History Provided By Patient,Family Member,Medical Record Has Patient been admitted in last 30 No days? Prior Living Arrangements House Household Members spouse Type of transporation used prior to Relies on Others admit Comment spouse or daughter or other family drive her Independent with ADL's No: spouse sometimes assist with dressing Is patient alert and oriented? No: see comment Needs Assistance With Meal Prep,Home Chores / Shopping Comment Patient appeared minorly confused at this time. DME Already Rented / Owned Bath Bench,Wheelchair,Elevated Toilet Seat,FWW / Walker,Cane Comment Ramp into house Comment Patient and family open to HH. patient and family not open to SNF Barriers to Discharge No Discharge Plan Home SNF/HH Preference no preference at this time Whiteboard Updated in Patient Room with Yes name and ext. # of Materials Handler Review Status In Process Next Review Type Continued Stay Review
[2022-11-18] MEDS: ATORVASTATIN 20 MG TABLET 40 MG PO (21:22)
[2022-11-19] VITALS: BP 111/57; PULSE 73; RESP 18; TEMP 36.4; O2SAT 93
--- NOTE | 2022-11-19 00:16 | PC.NURSE ---
Patient is alert and oriented except did not know day of month or day of week; responses are slightly delayed and patient is forgetful. Noted bilateral UE tremors. Breath sounds CTA and is on CPAP with O2 bled in at 4L/min with sat of 97% so oxygen was decreased to 2L/min and sat continuing to stay in 90's; goal is to be > 88% so continuing to titrate down. HRR w/telemetry reading of SR w/premature ventricular contractions. Is no longer bradycardic but BP still soft at 106/42 and does have a drop in BP from lying to standing. Denied nausea. BT hypoactive and abdomen is distended but soft; did complain of abdominal pain at start of shift which resolved with use of tylenol. External female catheter placed for the night to allow patient to get more sleep. Is able to reposition in bed but staff are turning her q2h as has reddened area on coccyx/buttocks. Is able to get out of bed with walker and 1 assist but is slow and unsteady; does have order for PT. Is wearing bilateral calf SCD's. Has trace bilateral LE edema. Fall risk score is high and bed alarm is activated.
[2022-11-19] MEDS: ACETAMINOPHEN 325 MG TABLET 650 MG PO ×3 (02:20→11:42)
[2022-11-19 04:00] VITALS: BP 110/42; PULSE 69; RESP 20; TEMP 36.3; O2SAT 92
[2022-11-19] MEDS: SODIUM CHLORIDE 0.9% FLUSH 10 ML IV (04:44)
[2022-11-19 05:13] LABS: Add Manual Diff / Slide Review NO; Basophils Absolute Auto 0 /uL (0-100); Basophils Percent Auto 0.5 % (0-2); Eosinophils Absolute Auto 0 /uL (0-450); Eosinophils Percent Auto 0.6 % (2-4); Hematocrit 25.6 % (36-46); Hemoglobin 8.7 g/dL (12.0-16.0); Lymphocytes Absolute Auto 800 /uL (1100-4500); Lymphocytes Percent Auto 24.9 % (25-40); Mean Corpuscular Hemoglobin 33.5 PG (26-34); Mean Corpuscular Volume 98.4 fL (80-100); Monocytes Absolute Auto 100 /uL (0-900); Monocytes Percent Auto 3.1 % (3-14); Neutrophils Absolute Auto 2300 /uL (1500-7000); Neutrophils Percent Auto 70.9 % (50-75); Platelet Count 87 X10^3/uL (150-400); Red Cell Distribution Width 16.5 % (11.6-14.8); White Blood Cell Count 3.2 X10^3/uL (4.5-11.0)
[2022-11-19 05:19] LABS: Alanine Aminotransferase 14 IU/L (<35); Albumin 3.4 g/dL (3.5-5.0); Albumin Globulin Ratio 1.1 (1.0-2.8); Alkaline Phosphatase 63 U/L (38-126); Aspartate Aminotransferase 18 IU/L (14-36); BUN Creatinine Ratio 17.5 (6-22); Bilirubin Total 0.4 mg/dL (0.2-1.3); Blood Urea Nitrogen 29 mg/dL (7-17); Calcium 8.2 mg/dL (8.4-10.2); Carbon Dioxide 22 mmol/L (22-32); Chloride 111 mmol/L (98-107); Estimated Glomerular Filt Rate 31 mL/min (>60); Globulin 3.2 g/dL (1.7-4.1); Glucose 96 mg/dL (80-110); HEMOLYSIS < 15 (0-50); Magnesium 1.7 mg/dL (1.6-2.3); Potassium 3.4 mmol/L (3.4-5.1); Sodium 140 mmol/L (137-145); Total Protein 6.6 g/dL (6.3-8.2)
[2022-11-19 08:00] VITALS: BP 113/26; PULSE 77; RESP 17; TEMP 36.6; O2SAT 93
[2022-11-19] MEDS: PANTOPRAZOLE DR 40 MG TABLET PO (08:13)
[2022-11-19 09:00] VITALS: BP 107/48; BP 125/54; BP 126/54; PULSE 68; PULSE 76; PULSE 77
[2022-11-19 09:13] VITALS: O2SAT 92
--- NOTE | 2022-11-19 10:55 | PT.IIE ---
Current Diagnoses Bradycardia, unspecified (11/18/22) Surgical History (Last Updated 11/18/22 @ 03:33 [facility] H/O: hysterectomy History of colostomy History of gastric surgery Medical History (Last Reviewed 11/18/22 @ 03:33 by [facility]) Brain aneurysm Chronic kidney disease Colostomy in place GI bleeding Hyperlipidemia Hypertension Lower extremity edema Ovarian cancer Paroxysmal atrial fibrillation Physical Therapy Inpatient Evaluation/Re-Eval M1 PT/OT-IP Prior Functional Status Start: 11/18/22 09:01 Freq: NEEDED Status: Active Protocol: Document 11/18/22 13:27 CGR (Rec: 11/18/22 13:47 CGR [id number]) Medical Review Prior Functional Status Medical History Reviewed Yes Communication Pt is an effective verbal communicator. Mobility and Gait Pt was IND in all mobility prior to ~3 weeks ago. Family states that they have seen a slow decline in her abilities over the last year but pt was ambulating IND recently. Activities of Daily Living and IADL's Pt was IND in all ADLs prior to ~3 weeks ago. Pt states that things have been progressively more difficult. Social History Household Members spouse Living Arrangements House Number of Floors (Floors) One Floor Number of Stairs To Enter/Railing? ramp to enter Home Environment High Toilet,Walk in Shower Home Equipment Front Wheel Walker,Four Wheel Walker,Quad Cane,Straight Cane ,Bedside Commode,Shower Seat with Backrest,Shower Seat without Backrest,Hand Held Shower,Grab Bars In Shower Employment Status Retired Additional Social History Comment Pt has a transport chair. M1 PT/OT-IP Prior Functional Status Start: 11/18/22 13:26 Freq: NEEDED Status: Active Protocol: Document 11/19/22 10:55 AB (Rec: 11/19/22 13:36 AB [id number]) Medical Review Prior Functional Status Communication able to make needs known Mobility and Gait pt stated that she is modified independent with all mobilities and ambulation without AD but occasionally uses a hurrycane Social History Household Members spouse Living Arrangements House Number of Floors (Floors) One Floor Number of Stairs To Enter/Railing? no steps to enter; has 1 step to go down to family room Home Environment High Toilet,Walk in Shower Home Equipment Front Wheel Walker,Four Wheel Walker,Straight Cane,Shower Seat with Backrest,Hand Held Shower,Grab Bars Near Toilet, Grab Bars In Shower Additional Social History Comment pt has a hurrycane and a transport w/c M2 PT-IP Current Condition Start: 11/18/22 09:01 Freq: NEEDED Status: Active Protocol: Document 11/19/22 10:55 AB (Rec: 11/19/22 13:36 AB [id number]) Physical Therapy Current Condition Current Condition Evaluation Date 11/19/22 Treatment Diagnosis bradycardia; h/o ovarian CA with mets; difficulty in walking Onset Date 11/18/22 M3 PT-IP Subjective Start: 11/18/22 09:01 Freq: NEEDED Status: Active Protocol: Document 11/19/22 10:55 AB (Rec: 11/19/22 13:36 AB [id number]) Subjective Physical Therapy Visit Type Type Initial Evaluation Visit Start Time 10:55 Visit Stop Time 12:00 Total Visit Minutes 30 Notes pt seen for split visits: 1055 am to 1105 and 1140 to 1200 checked on pt and PLOF and home set up info obtained but pt stated that they just changed her colostomy bag and is not supposed to move for ~ 10 more minutes. talked with nurse in confirmed. checked back on pt but the doctor was in with pt. checked back on pt again and agreed to do PT. Number of ACCOUNTS CLERK Visits 30 Therapy Pain Assessment Pain When Pain Assessed At Rest Pain Present Pain Present Pain Reported Location Abdomen Intensity 2 Scale Used Numeric (0 - 10) Pain Management Techniques Distraction,Modification of Treatment,Re-positioning, Timing of Activity with Medications M4 PT-IP Mobility and Gait Start: 11/18/22 09:01 Freq: NEEDED Status: Active Protocol: Document 11/19/22 10:55 AB (Rec: 11/19/22 13:36 AB [id number]) PT-Bed Mobility Assessment Supine to Sit Supine to Sit Standby Assistance,Head of Bed Elevated PT-Transfer Assessment Sit to and From Stand Sit to and from Stand Standby Assistance,Contact Guard Assistance,1 Person Assistance,Use of Upper Extremities Equipment Transfer Assistive Device Gait Belt,Front Wheeled Walker Orthotic/Prosthetic Devices or Brace: No Transfers Transfer Destination Toilet Transfer Technique ambulated Transfer Ability Level of Assist Standby Assistance,Contact Guard Assistance,1 Person Assistance,Use of Upper Extremities Comments Mobility Comments BP: 124/54. pt completed supine to sit SBA with HOB elevated. able to sit on EOB SBA. no c/o dizziness. requested to use the toilet. sit to stand from EOB CGA and ambulated to the toilet using FWW CGA. cued for positioning . pt with slight difficulty following directions and need repeated cues. sit to stand from the toilet using grab bar SBA. pt ambulated towards the sink using FWW SBA. able to maintain standing SBA while completing handwashing. ambulated to the chair using FWW SBA. sit to stand from the chair SBA and ambulated towards platform step. completed up/ down platform step using FWW CGA and cues with PT initially assisting. educated spouse on how to assist pt and counter demonstrated and able to assist pt with platform step . pt ambulated back to the room using FWW SBA. pt presents with antalgic gait and slow paced gait with increase lateral R sided leaning. pt stated that she had R hip sx before and spouse confirmed that affected her ambulation. Assessed ambulation without AD and completed ~ 10 ft CGA and cues. Recommending use of FWW at this time and pt agreed. educated spouse on how to use safety belt and was able to put safety belt on pt . pt agreed to stay up on the chair. call light and table placed within reach. Gait Assessment Gait Gait Assistance Required: Standby Assistance,Contact Guard Assist Distance (Feet) 25 Able to Maintain Weight Bearing Status Yes During Gait Assistive Devices Assistive Device None,Gait Belt,Front Wheeled Walker Orthotic/Prosthetic Devices or Brace: No Gait Deviations General Gait Pattern Antalgic,Decreased Stride Length,Decreased Feet Clearance,Step-to Gait Factors Limiting Gait Function Factors Limiting Gait Function Decreased Activity Tolerance, Decreased Strength,Difficulty Following Directions,Limited Range of Motion,Pain,Poor Balance,Poor Safety Awareness Stair Climbing Assessment Evaluation Level of Assist On Stairs Contact Guard Assistance,1 Person Assistance Devices Stair Climbing Assistive Devices Front Wheel Walker Technique/Endurance Stair Climbing Direction Ascend and Descend Stair Climbing Technique Step to Step Number of Steps Climbed 1 Query Text: Stair Climbing Set # Repetitions (reps) 2 PT-Balance Assessment Sitting Balance and Reactions Static Sitting Balance Ability Normal Dynamic Sitting Balance Ability Good Standing Balance and Reactions Static Standing Balance Ability Fair Dynamic Standing Balance Ability Fair Device Used FWW M5 PT-IP Objective Assessments Start: 11/18/22 09:01 Freq: NEEDED Status: Active Protocol: Document 11/19/22 10:55 AB (Rec: 11/19/22 13:36 AB [id number]) Orientation Orientation/Cognition Level of Alertness Confusional State Orientation Name,Situation Language Function Ability No Deficits Noted Safety Awareness Decreased Safety Awareness Memory Description Short Term Impaired Gross Range of Motion Lower Extremity ROM Assessment Within Functional Limits Strength Lower Extremity Strength Hip 4-/5 Knee 4-/5 Muscle Tone Muscle Tone WNL Yes M6 PT-IP Treatment Start: 11/18/22 09:01 Freq: NEEDED Status: Active Protocol: Document 11/19/22 10:55 AB (Rec: 11/19/22 13:36 AB [id number]) Physical Therapy Treatment Education Education Provided Safety M7 PT-IP Assessment and Plan Start: 11/18/22 09:01 Freq: NEEDED Status: Active Protocol: Document 11/19/22 10:55 AB (Rec: 11/19/22 13:36 AB [id number]) PT Summary Assessment and Plan Potential Rehabilitation Potential Fair Status of Condition at Evaluation Evolving Summary Impairments Pain,ROM,Strength,Balance, Coordination,Sensation,Tone, Cognition,Bed Mobility, Transfers,Gait,Activity Tolerance Assessment Summary pt admitted for bradycardia and hypotension. pt with h/o ovarian CA with mets and also has a colostomy bag. pt requiring SBA to CGA with mobility and recommending use FWW at this time. pt with slight confusion affecting safety awareness but will have her spouse to assist her at home. pt will benefit from HHPT. Goals Bed Mobility Goal Independent Transfer Goal Independent,Front Wheeled Walker Gait Goal Independent,Front Wheel Walker Gait Distance 300 Other Goals ambulation without AD SBA 300 ft up/down 1 step without AD SBA Days to Meet Goals 5 Frequency of Treatment Frequency Of Treatment Once a Day Treatment Plan Physical Therapy Treatment Plan Bed Mobility Training,Transfer Training,Gait Training, Therapeutic Exercise,Balance Retraining,Discharge Planning, Hot or Cold Pack,Neuromuscular Re-ed,Coordination Retraining Precautions Other Precautions colostomy bag Recommendations To Nursing Amount of Assist Needed 1 Person Assist Discharge Recommendations PT Discharge Recommendations Home with Assistance,Home Health Transportation Needs at Discharge Private Vehicle
--- NOTE | 2022-11-19 11:45 | PM.DS.1 ---
History of Present Illness History of Present Illness Date Patient Seen: 11/19/22 Time Patient Seen: 11:46 Chief complaint: Hypotension, bradycardia, ABD pain,met ovarian CA Narrative: Per admitting provider, Svetlana Abarca is an 81-year-old female with history of hypertension, HLD, chronic kidney disease, colovesical fistula with colostomy, chronic atrial fibrillation, chronic anemia with iron deficiency, history of brain aneurysm, history of GI bleed, bilateral lower extremity edema, and current metastatic ovarian cancer on oral chemotherapy who presented complaining of abdominal pain, worsening nausea, increased fatigue, and decreased blood pressure over the past week.? She recently started a new regimen to treat her metastatic ovarian cancer in his followed by Dr. Huerta at?[facility].? Cardiology Dr. Jayden Real, nephrology Dr. Webb Jennings beulah.? In ED patient was found to be hypotensive 107/46, bradycardic HR in the 36-41 (44), 16, 89% on room air. EKG sinus [place] with a rate of 42, low-voltage QRS, inferior infarct, unchanged from EKG on 07/29/2022 with the exception of bradycardia. She describes increasing lower extremity edema, no fevers, decreased appetite but unclear if she is been losing weight, significant productive cough.? Patient appears slightly confused has difficulty answering questions, poor recall, she appears extremely tired and fatigued and has been up all night, as it is 5am. No fevers coughs or chills.? No chest pain or shortness of Breath. Patient denies headache, changes in vision, difficulty swallowing, speech impairment, numbness, tingling, difficulty with ambulation, recent falls, head injury, LOC, body aches, recent exposure to illness, vomiting, urinary incontinence/retention, dysuria, frequency, urgency, hematuria, bowel changes, constipation, incontinence, melena, rashes, recent injury, or trauma. On admit 97.5, 95/52, 41, RR 20, O2 saturation 92% on 4 L. labs from 07/29/2022 H&H 11/34, platelets 230, BUN 18, creatinine 1.14, GFR 48. Today WBC 4.4, H&H /, platelets 123, BUN 35, creatinine 2.03, GFR 24, glucose 133, troponin is negative. Patient had a recent abdominal CT exam July 2022 at [facility], Dr. Calero requested the comparison be to the [facility] 07/2022 scan. Radiology did not but rather compared it to 09/16/[address]: Partially calcified lobulated soft tissue masses in the left paracolic gutter, diffuse small peritoneal soft tissue implants, and small amount of ascites.? These include partially calcified masslike thickening at the rectal stump.? Multiple partially calcified subcutaneous soft tissue nodules within the ventral abdominal wall. Heterogeneous enhancement of the liver with a nonspecific hypodense lesion along the gallbladder fossa.?Partially calcified enlarged lymph nodes within the visualized mediastinal and right costophrenic angle anteriorly. Bilateral pleural effusions, moderate on the right and small on the left. and Mild superior endplate compression deformity of the T12 vertebral body. Admitted for acute abdominal pain, bradycardia, hypotension, pancytopenia, SHANNAN, and metastatic ovarian cancer. Discharge Providers Provider Date of admission: 11/18/22 03:25 Discharge Date: 11/19/22 Primary care physician: Elena Huerta MD Consults: 11/18/22 03:14 Consult to Occupational Therapy Evaluate & Treat Comment: Physician Instructions: Evaluate and treat Consult to Physical Therapy Evaluate & Treat Comment: Physician Instructions: Evaluate and Treat 11/18/22 04:26 Consult to PLATE SLITTER AND INSPECTOR - Sat Instructor Routine Comment: once Radiology/Hospitalist has reviewed images PLATE SLITTER AND INSPECTOR Consult needed for:: End of Life/Goal Care Dis 11/18/22 04:36 Consult to Dietitian, Adult Routine Comment: Reason For Exam: recent chemo medication change Discharge provider: Taco Davis DO Summary Hospital Course Discharge Diagnosis: Bradycardia, with hypotension, acute, present on admission Acute abdominal pain, likely secondary to metastatic ovarian cancer, acute on chronic, present on admission SHANNAN, in the setting of CKD, with hyperlipidemia, acute on chronic, present on admission Pancytopenia, acute, likely secondary to metastatic ovarian cancer/oral chemotherapy, present on admit Pleural effusion, bilateral, acute, present on admission T12 compression fracture, chronic, present on admission Chronic Paroxysmal atrial fibrillation, chronic, present on admission Hypertension, essential, chronic, present on admission Hospital Course: Svetlana Abarca is an 81-year-old female with history of hypertension, chronic kidney disease, colovesical fistula with colostomy, chronic atrial fibrillation, chronic anemia with iron deficiency, and current metastatic ovarian cancer on oral chemotherapy who presented complaining of abdominal pain, worsening nausea, increased fatigue, and decreased blood pressure over the past week.? She recently started a new oral chemotherapy regimen for metastatic ovarian cancer. She was also found to be bradycardic. After further discussion, there was some confusion about some of her recent blood pressure medication changes. Given hypotension and bradycardia, all of her medications were stopped and fluids were provided. Her creatinine, blood pressure and heart rate improved. She was instructed to resume diltiazem for chronic afib if SBP is >140 at home. Her adbominal pain also improved, and she continued with home tylenol. There was a CT scan performed with diffuse disease, though comparison images could not be obtained from outside hospital ([facility]) from 2 weeks ago. Given improvement patient was able to discharge home the following day with all BP medications recommended to be stopped. Time Spent with Patient Time spent: Greater than 30 minutes Exam Vital Signs (past 8 hours): - 11/19/22 04:00 11/19/22 09:13 11/19/22 08:00 Temperature 97.4 F L 97.8 F Pulse Rate 69 77 Pulse Rate [Orthostatic Lying] Pulse Rate [Orthostatic Sitting] Pulse Rate [Orthostatic Standing] Respiratory Rate 20 17 Blood Pressure 110/42 L 113/26 L Blood Pressure [Orthostatic Lying] Blood Pressure [Orthostatic Sitting] Blood Pressure [Orthostatic Standing] Pulse Oximetry 92 92 93 Oxygen Delivery Method Nasal Cannula Oxygen Flow Rate 0.5 0.5 0 Fraction of Inspired Oxygen 22 11/19/22 09:00 Temperature Pulse Rate Pulse Rate [Orthostatic Lying] 68 Pulse Rate [Orthostatic Sitting] 77 Pulse Rate [Orthostatic Standing] 76 Respiratory Rate Blood Pressure Blood Pressure [Orthostatic Lying] 125/54 L Blood Pressure [Orthostatic Sitting] 107/48 L Blood Pressure [Orthostatic Standing] 126/54 L Pulse Oximetry Oxygen Delivery Method Oxygen Flow Rate Fraction of Inspired Oxygen Fraction of Inspired Oxygen 22 SaO2/FiO2 Ratio 418 Oxygen Delivery Method Nasal Cannula Oxygen Flow Rate 0.5 Narrative Exam Narrative: General: Chronically ill appearing female, no acute distress Lungs: Auscultation of all lung ding are coarse without adventitious sounds, wheezes, rhonchi, or rales. Cardio: RRR no m/r/g Neuro: Alert and orientated x3, moves all extremities, sensation to touch intact, no gross deficits noted of cranial nerves. Psych: Patient has a well-kept appearance, appropriate affect, some very mild confusion, poor recall or could simply be severe fatigue after being up all night. Objective Labs 11/19/22 04:52 11/19/22 04:52 Labs: Laboratory Results - last 24 hr 11/19/22 11/19/22 04:52 04:52 WBC 3.2 L RBC 2.60 L Hgb 8.7 L Hct 25.6 L MCV 98.4 MCH 33.5 MCHC 34.0 RDW 16.5 H Plt Count 87 L Neut % (Auto) 70.9 Lymph % (Auto) 24.9 L [place] % (Auto) 3.1 Eos % (Auto) 0.6 L Baso % (Auto) 0.5 Neut # (Auto) 2300 Lymph # (Auto) 800 L [place] # (Auto) 100 Eos # (Auto) 0 Baso # (Auto) 0 Sodium 140 Potassium 3.4 Chloride 111 H Carbon Dioxide 22 BUN 29 H Creatinine 1.66 H Estimated GFR 31 L BUN/Creatinine Ratio 17.5 Glucose 96 Calcium 8.2 L Magnesium 1.7 Total Bilirubin 0.4 AST 18 ALT 14 Alkaline Phosphatase 63 Total Protein 6.6 Albumin 3.4 L Globulin 3.2 Albumin/Globulin Ratio 1.1 [facility] Medical History Brain aneurysm Chronic kidney disease Colostomy in place GI bleeding Hyperlipidemia Hypertension Lower extremity edema Ovarian cancer Paroxysmal atrial fibrillation Surgical History (Updated 11/18/22 @ 03:33 by TAE Rubio-ANTHONY) H/O: hysterectomy History of colostomy History of gastric surgery Family History (Updated 11/18/22 @ 03:34 by ROSA Rubio) Father No problems noted. Mother No problems noted. Social History household members: spouse Smoking Status: Former smoker alcohol intake: current Discharge Plan Discharge Plan Patient Disposition: Home Provider Discharge Comment: You were admitted to the hospital with low blood pressure and kidney injury. This is most likely due to too much blood pressure medication. Your home pantoprazole was refilled. I have stopped all of your BP medications for now, if your BP starts to get >140 at home you can restart diltiazem once a day. Try to follow up with your primary care provider to review your current medications and review blood pressure. Discharge orders & Medications Prescriptions: New ondansetron HCl 4 mg tablet 4 mg PO Q6H PRN (Reason: nausea and vomiting) 14 Days Qty: 30 0RF Continued acetaminophen 500 mg PO DAILY aspirin 81 mg Tablet 81 mg PO DAILY meloxicam 7.5 mg Tablet 7.5 mg PO DAILY nitroglycerin 0.4 mg Tablet, Sublingual 0.4 mg SUBLINGUAL Q5M PRN (Reason: chest pain) Rx Instructions: do not exceed 3 doses per episode rosuvastatin 40 mg Tablet 40 mg PO DAILY Kisqali 600 mg/day (200 mg x 3) Tablet 600 mg PO DAILY Rx Instructions: Take 3 pills daily and administer for 21 days; off 7 days per 28-day cycle pantoprazole 40 mg Tablet,Delayed Release (Dr/Ec) 40 mg PO DAILY 30 Days Qty: 30 0RF Discontinued diltiazem HCl 180 mg Capsule,Extended Release 24 Hr 180 mg PO DAILY Rx Instructions: takes XR daily. furosemide [Lasix] 20 mg Tablet 20 mg PO DAILY PRN (Reason: for leg swelling) metoprolol tartrate 25 mg Tablet 25 mg PO BID Follow up/Referrals: Elena Huerta MD [Primary Care Provider] - Diet/Activity/Treatments Diet: Diet as Tolerated and Regular Activity: As tolerated without any restrictions Visit Report/Discharge Packet Instructions: Exercises to Help Prevent Falls, DI for Hypotension Stand Alone Forms: Patient Portal/API, Stroke Signs & Symptoms Discharge Data Primary Care Provider: Elena Huerta Discharges patient from system. Discharge Date/Time: 11/19/22 14:10
[2022-11-19 12:00] VITALS: BP 133/56; PULSE 76; RESP 17; TEMP 36; O2SAT 95
--- NOTE | 2022-11-19 14:08 | PC.NURSE ---
Patient escorted out via wheelchair by TUBE PULLER to discharge patient home with her . Patient and her have no further questions or concerns at this time. Plan to follow up with her PCP to review blood pressures and blood pressure medications.
--- NOTE | 2022-11-19 14:47 | CM.DPC ---
DCP Continued: PRODUCTION OR PLANT ENGINEER reviewed EMR. PRODUCTION OR PLANT ENGINEER entered room and reintroduced self and role. Patient was resting in chair during interaction and was accompanied by spouse, Job. PRODUCTION OR PLANT ENGINEER confirmed with patient and spouse that HH would not be ordered upon d/c from this hospital. Patient and spouse expressed verbal understanding and agreement. Spouse asked for additional resources on home caregiver options. PRODUCTION OR PLANT ENGINEER provided spouse with senior resources booklet. Spouse appeared excited and interested in the information and thanked this author. Plan: D/c home today with spouse/family in POV. CM team will continue to follow with needs. SUMMER Judge
== END 2022-11-19 14:10 | disposition home or self-care (01) | DRG 682 ==
LOC: ED 11-18 03:17 → AC 11-18 03:26
PROVIDERS: Internal Medicine; Admitting Provider Nurse Practitioner Family; Emergency Provider Emergency Medicine; PCP Obstetrics & Gynecology Gynecologic Oncology; Referring Provider Emergency Medicine; Visit Provider Nurse Practitioner Family
DX: N17.9 Acute kidney failure, unspecified (principal); D61.810 Antineoplastic chemotherapy induced pancytopenia; C56.9 Malignant neoplasm of unspecified ovary; D61.818 Other pancytopenia; J90 Pleural effusion, not elsewhere classified; R00.1 Bradycardia, unspecified; T45.1X5A Adverse effect of antineoplastic and immunosuppressive drugs, initial encounter; I48.0 Paroxysmal atrial fibrillation; I95.9 Hypotension, unspecified; I12.9 Hypertensive chronic kidney disease with stage 1 through stage 4 chronic kidney disease, or unspecified chronic kidney disease; N18.9 Chronic kidney disease, unspecified; E78.5 Hyperlipidemia, unspecified; Z87.891 Personal history of nicotine dependence; Z93.3 Colostomy status; Z20.822 Contact with and (suspected) exposure to COVID-19; Z66 Do not resuscitate
CPT/HCPCS: 36591; 74177; 80048; 80053; 83735; 83880; 84484; 85025; 85610; 85730; 93005; 94760; 96374; 97162; 97166; 97535; 99284; J1170; J2405; Q9967